=== PATIENT | male | born 1955 | race Caucasian/White ===

== ENCOUNTER 2024-07-31 10:20 | Inpatient (IN) | payer OTHER, MEDICARE ==
--- NOTE | 2024-07-31 10:42 | ED ---
Chest Pain HPI - General Chief Complaint: Chest Pain Stated Complaint: chest pain Time Seen by Provider: 07/31/24 10:34 Source: patient, RN notes reviewed Mode of arrival: ambulatory Limitations: no limitations - History of Present Illness Initial Comments: This is a 69-year-old male with a past medical history of hypertension, hyperlipidemia, tobacco abuse presenting to emergency department via EMS for complaints of substernal chest pain described as a stabbing sensation that started few hours prior to arrival. Patient dates that he was sitting in his couch watching television when the pain started. He endorses associated shortness of breath and feelings of nausea with mild diaphoresis at the time. He denies radiation of pain, history of DVT or PE, mopped assist, recent prolonged travel, recent surgeries, calf swelling or pain. Denies blood thinner use. Patient states that he was given aspirin and route via EMS - Related Data Allergies Allergy/AdvReac Type Severity Reaction Status Date / Time No Known Allergies Allergy Verified 07/31/24 10:31 Review of Systems ROS Statement: Those systems with pertinent positive or pertinent negative responses have been documented in the HPI. ROS Other: All systems not noted in ROS Statement are negative. Past Medical History Past Medical History: Hyperlipidemia, Hypertension History of Any Multi-Drug Resistant Organisms: None Reported Past Surgical History: No Surgical Hx Reported Past Psychological History: Anxiety Smoking Status: Current every day smoker Past Alcohol Use History: None Reported Past Drug Use History: None Reported General Exam Limitations: no limitations General appearance: alert, in no apparent distress Eye exam: Present: normal appearance, PERRL, EOMI. Absent: scleral icterus, conjunctival injection, periorbital swelling Neck exam: Present: normal inspection. Absent: tenderness, meningismus, lymphadenopathy Respiratory exam: Present: normal lung sounds bilaterally. Absent: respiratory distress, wheezes, rales, rhonchi, stridor Cardiovascular Exam: Present: regular rate, normal rhythm, normal heart sounds. Absent: systolic murmur, diastolic murmur, rubs, gallop, clicks GI/Abdominal exam: Present: soft, normal bowel sounds. Absent: distended, tend erness, guarding, rebound, rigid Extremities exam: Present: normal inspection, full ROM, normal capillary refill. Absent: tenderness, pedal edema, joint swelling, calf tenderness Back exam: Present: normal inspection Course Vital Signs 07/31/24 07/31/24 10:24 13:52 Temperature 98.4 F Pulse Rate 81 91 Respiratory 17 18 Rate Blood Pressure 183/94 164/97 O2 Sat by Pulse 99 97 Oximetry Chest Pain MDM - MDM Was pt. sent in by a medical professional or institution (KRYSTYNA Barker, RE[employer]UITING [employer]AD, urgent care, hospital, or detention...) When possible be specific @ -No Did you speak to anyone other than the patient for history (EMS, parent, family, police, friend...)? What history was obtained from this source @ -No Did you review nursing and triage notes (agree or disagree)? Why? @ -I reviewed and agree with nursing and triage notes Were old charts reviewed (outside hosp., previous admission, EMS record, old EKG, old radiological studies, urgent care reports/EKG's, detention records)? Report findings @ -No old charts were reviewed Differential Diagnosis (chest pain, altered mental status, abdominal pain women, abdominal pain men, vaginal bleeding, weakness, fever, dyspnea, syncope, headache, dizziness, GI bleed, back pain, seizure, CVA, palpatations, mental health, musculoskeletal)? @ -Differential Chest Pain: Stable Angina, Unstable Angina, STEMI, NSTEMI Aortic Dissection, Pneumothorax, Musculoskeletal, Esophageal Spasm GERD, Cholecystitis, Pancreatitis, Zoster, this is not meant to be an all-inclusive list. EKG interpreted by me (3pts min.). @ -Completed at 1030 sinus rhythm with a ventricular rate of 93, WV interval 162, QRS 115, QTc 430. X-rays interpreted by me (1pt min.). @ -Chest x-ray completed with no acute cardiopulmonary process or disease CT interpreted by me (1pt min.). @ -CT of the chest angiography for PE reveals no evidence of PE. scattered areas of mural thrombus of the thoracic aorta and origin of the subclavian artery U/S interpreted by me (1pt. min.). @ -None done What testing was considered but not performed or refused? (CT, X-rays, U/S, labs)? Why? @ -None What meds were considered but not given or refused? Why? @ -None Did you discuss the management of the patient with other professionals (professionals i.e. KRYSTYNA Barker, RECRUITING TE[employer] LEAD, lab, RT, psych nurse, social worker aide, cloud software engineer, teacher, fire information officer, rifle case repairer)? Give summary @ -Spoke with on-call [facility] [facility] physician, Dr. Espinoza, was agreed to meet the patient recommends vascular consult for CT scanning finding of scattered areas of mural thrombus of the thoracic aorta Was smoking cessation discussed for >3mins.? @ -No Was critical care preformed (if so, how long)? @ -No Were there social determinants of health that impacted care today? How? (Homelessness, low income, unemployed, alcoholism, drug addiction, transportation, low edu. Level, literacy, decrease access to med. care, [facility], rehab)? @ -No Was there de-escalation of care discussed even if they declined (Discuss DNR or withdrawal of care, Hospice)? DNR status @ -No What co-morbidities impacted this encounter? (DM, HTN, Smoking, COPD, CAD, Cancer, CVA, ARF, Chemo, Hep., AIDS, mental health diagnosis, sleep apnea, morbid obesity)? @ -Hypertension, smoking Was patient admitted / discharged? Hospital course, mention meds given and route, prescriptions, significant lab abnormalities, going to OR and other pertinent info. @ Admitted. 69-year-old male presenting to emergency department with complaints of chest pain via EMS. He is provided with aspirin en route. Blood pressure is mildly elevated of 183/94. Overall patient is well-appearing. He is provided with morphine for pain control and will undergo cardiac evaluation. Chest x-ray is unremarkable. Initial troponin not elevated. Patient does have a elevated D-dimer at 1.67 where CTA of the chest is ordered no evidence of PE however incidental finding of scattered areas mural thrombus of thoracic aorta with origin of the subclavian artery. Patient will be admitted to internal medicine with cardiology and vascular on consult and will continue to trend troponin. Patient will be admitted to Dr. Espinoza. case discussed with my ED attending, Dr. dunbar Patient has a heart score of 6 which is a moderate score concerning for risk of major adverse cardiac event within the next 6 weeks Undiagnosed new problem with uncertain prognosis? @ -No Drug Therapy requiring intensive monitoring for toxicity (Heparin, Nitro, Insulin, Cardizem)? @ -No Were any procedures done? @ -No Diagnosis/symptom? @ -Chest pain, mural thrombus of thoracic aorta Acute, or Chronic, or Acute on Chronic? @ -Acute Uncomplicated (without systemic symptoms) or Complicated (systemic symptoms)? @ -complicated Side effects of treatment? @ -No Exacerbation, Progression, or Severe Exacerbation? @ -No Poses a threat to life or bodily function? How? (Chest pain, [place], [place], pneumonia, PE, COPD, DKA, ARF, appy, cholecystitis, CVA, Diverticulitis, Homicidal, Suicid al, threat to staff... and all critical care pts) @ -No Disposition Clinical Impression: Chest pain Disposition: ADMITTED IP TO THIS [facility] Condition: Stable Referrals: Og Ortiz DO [Primary Care Provider] - 1-2 days Decision to Admit Reason: Admit from EC Decision Date: 07/31/24 Decision Time: 14:44
[2024-07-31] MEDS: MORPHINE SULFATE 4 MG/ML SYRINGE IVP STA ×2 (10:58→13:51)
--- NOTE | 2024-07-31 11:19 | XR ---
EXAMINATION TYPE: XR chest 2V DATE OF EXAM: 07/31/2024 11:05 AM COMPARISON: None. CLINICAL INDICATION: Male, 69 years old with history of Chest Pain, TECHNIQUE: XR chest 2V view(s) obtained. FINDINGS: The heart size is normal. The pulmonary vasculature is normal. The lungs are clear. IMPRESSION: 1. No acute pulmonary process. [facility], , 07/31/2024 11:17 AM
[2024-07-31 12:02] LABS: Basophils # (A) 0.05 10*3/uL (0.00-0.10); Basophils % (A) 0.6 %; Eosinophils # (A) 0.01 10*3/uL (0.04-0.35); Eosinophils % (A) 0.1 %; HCT 38.6 % (39.6-50.0); HGB 14.4 g/dL (13.0-17.0); Lymphocytes # (A) 1.34 10*3/uL (0.90-5.00); Lymphocytes % (A) 15.8 %; MCHC 37.3 g/dL (32.0-37.0); MCV 88.3 fL (80.0-97.0); Mean Platelet Volume 8.8 fL (9.5-12.2); Monocytes # (A) 0.76 10*3/uL (0.20-1.00); Neutrophils % (A) 74.4 %; Platelet Count 188 10*3/uL (140-440); RBC 4.37 10*6/uL (4.40-5.60); RDW 12.8 % (11.5-14.5); WBC 8.47 10*3/uL (4.50-10.00)
[2024-07-31 12:16] LABS: ALT 23 U/L (4-49); AST 31 U/L (17-59); African American GFR (CKD) >90 (>60 ml/min/1.73 sqM); Albumin 4.3 g/dL (3.5-5.0); Alkaline Phosphatase 90 U/L (38-126); Anion Gap 11 mmol/L; Blood Urea Nitrogen 15 mg/dL (9-20); Calcium 9.4 mg/dL (8.4-10.2); Carbon Dioxide 22 mmol/L (22-30); Chloride 100 mmol/L (98-107); Glucose 120 mg/dL (74-99); Lipase 164 U/L (23-300); Magnesium 1.6 mg/dL (1.6-2.3); Non-African American GFR(CKD) >90 (>60 ml/min/1.73 sqM); Potassium 4.2 mmol/L (3.5-5.1); Sodium 133 mmol/L (137-145); Total Bilirubin 0.9 mg/dL (0.2-1.3); Total Protein 7.1 g/dL (6.3-8.2)
[2024-07-31 12:21] LABS: NT-Pro-B-Type Natriuretic Pept 152 pg/mL
[2024-07-31 12:29] LABS: Prothrombin Time 10.8 sec (10.0-12.5)
[2024-07-31 12:42] LABS: Partial Thromboplastin Time 19.3 sec (22.0-30.0)
--- NOTE | 2024-07-31 14:06 | CT ---
EXAMINATION TYPE: CT chest angio for PE DATE OF EXAM: 07/31/2024 COMPARISON: None CLINICAL INDICATION: Male, 69 years old with history of chest pain, elevated dimer; PHH, Chest pain, elevated D-dimer, SOB or PAIN TECHNIQUE: Ct angiogram of the chest performed with without and with IV Contrast, patient injected with 100 ml m L of Isovue 370. MIP images are created and reviewed. CT DLP: 288.[address] CTDI: mGy Automated exposure control for dose reduction was used. FINDINGS: There are no filling defects within the pulmonary arterial circulation to suggest pulmonary embolism. There are scattered areas of filling defects within the ascending thoracic aorta, aortic arch and soni cending thoracic aorta. Filling defects are also seen within the origin of the left subclavian artery . There is no lung mass or nodule. There is no airspace consolidation. There is no pleural effusion or pneumothorax. Limited scanning through the upper abdomen reveals no gross abnormality. There are no focal osseous lesions. IMPRESSION: 1. No evidence of pulmonary embolism. 2. Scattered areas of mural thrombus within the thoracic aorta and origin of the left subclavian casimiro ry. Possibly poses a significant risk for down stream embolism. 3. No acute cardiopulmonary disease. [facility], , 07/31/2024 2:04 PM
[2024-07-31] MEDS ORDERED: NALOXONE 0.4 MG/ML 1 ML VIAL IV PRN (14:44)
[2024-07-31] MEDS ORDERED: NICOTINE GUM (POLACRILEX) 2 MG GUM BUCCAL PRN (15:44)
--- NOTE | 2024-07-31 15:48 | P.HPIM ---
History of Present Illness H&P Date: 07/31/24 Patient is 69-year-old male with past medical history of hypertension, does not follow with primary care physician, tobacco use disorder around [id number], who presented to the ER via EMS with chest pain described as sharp. The pain started when he was sitting in the chair, watching TV, noted associated SOB, diaphoresis, nausea. The pain lasted minutes, self resolved. During my eval uation, patient noted some remaining chest discomfort that gets worse with physical activity and improves with rest. No radiation. No fevers, chills, back pain, abdominal pain, changes in bowel habits, dysuria, lower extremity edema, upper extremity weakness, sensation changes. No dizziness, ligh theadedness. Positive family history of for heart attacks in his maternal grandfather. No alcohol use, no drug use. On admission afebrile, heart rate in the 80s, BP elevated 193/94, satting well on room air. Lab work significant for normal CBC, D-dimer elevated 1.67, sodium 133, normal potassium, chloride, bicarb, creatinine 0.57, blood glucose 128, magnesium 1.6, AST ALT normal, normal BNP and troponin negative. Chest x-ray showed no acute pulmonary process, personally reviewed. EKG with sinus rhythm with heart rate in 90s, no ST elevation, QTc 430 CTA chest showed no evidence of PE, filling defects, mual thrombus within the ascending thoracic aorta, aortic arch and descending thoracic aorta, filling defects within the origin of the left subclavian artery Pertinent positives and negatives as discussed in HPI, a complete review of systems was performed and all other systems are negative. Patient seen and examined at bedside. Vital signs reviewed General: nontoxic, no distress, appears at stated age Derm: warm, dry Head: atraumatic, normocephalic, symmetric Eyes: EOMI, no lid lag, anicteric sclera, pupils equal round reactive to light ENT: Nose and ears atraumatic Neck: No thyromegaly, supple Mouth: no lip lesion, mucus membranes moist Cardiovascular: S1S2 reg, no murmur, no edema Lungs: clear to auscultation bilateral, no rhonchi, no rales, no wheeze, no accessory muscle use Abdominal: soft, nontender to palpation, no guarding, no appreciable organomegaly, umbilical hernia Ext: no gross muscle atrophy, muscle strength muscle strength 5 out of 5 in all 4 extremities, no contractures Neuro: CN II-XII grossly intact Psych: Alert, oriented, appropriate affect Assessment/Plan: Chest pain mural thrombus within the ascending thoracic aorta, aortic arch and descending thoracic aorta, filling defects within the origin of the left subclavian artery Hypertension -Cardiology consulted, appreciate recommendations -Vascular surgery consulted, notified Dr. Enrique, awaiting further recommendations -TSH, lipid profile, A1c ordered, pending -Continue telemetry -Resume home meds once reconciled -Sublingual nitro 0.4 mg every 10 minutes as needed -Morphine 4 mg IV every 4 hours as needed Tobacco use disorder -Requested nicotine gum, states it gets skin reaction with patches The patient is admitted with an anticipated [less] than 2 midnight stay as [observation] status for evaluation of chest pain, CODE STATUS: Full code DVT prophylaxis: Lovenox Anticipated discharge date: TBD Anticipated discharge place: [facility] A total of 38minutes was spent on the care of this complex patient more than 50% of the time was spent in counseling and care coordination. Past Medical History Past Medical History: Hyperlipidemia, Hypertension History of Any Multi-Drug Resistant Organisms: None Reported Past Surgical History: No Surgical Hx Reported Past Psychological History: Anxiety Smoking Status: Current every day smoker Past Alcohol Use History: None Reported Past Drug Use History: None Reported Medications and Allergies Allergies Allergy/AdvReac Type Severity Reaction Status Date / Time No Known Allergies Allergy Verified 07/31/24 15:42 Physical Exam Vitals: Vital Signs Temp Pulse Resp BP Pulse Ox 07/31/24 13:52 91 18 164/97 97 07/31/24 10:24 98.4 F 81 17 183/94 99 Intake and Output 07/30/24 07/31/24 07/31/24 22:59 06:59 14:59 Other: Weight 79.379 kg Results CBC & Chem 7: 07/31/24 11:31 07/31/24 11:31 Labs: Abnormal Lab Results - Last 24 Hours (Table) 07/31/24 07/31/24 07/31/24 Range/Units 11:31 11:31 11:31 RBC 4.37 L (4.40-5.60) 10*6/uL Hct 38.6 L (39.6-50.0) % MCH 33.0 H (27.0-32.0) pg MCHC 37.3 H (32.0-37.0) g/dL MPV 8.8 L (9.5-12.2) fL Eosinophils # 0.01 L (0.04-0.35) 10*3/uL APTT 19.3 L (22.0-30.0) sec D-Dimer 1.67 H (<0.60) mg/L FEU Sodium 133 L (137-145) mmol/L Creatinine 0.57 L (0.66-1.25) mg/dL Glucose 120 H (74-99) mg/dL
[2024-08-01 02:54] LABS: Chol/HDL Ratio 2.72 Ratio; LDL Cholesterol,Calculated 103.7 mg/dL (0.0-131.0); VLDL Calculation 13.42 mg/dL (5.00-40.00)
[2024-08-01 08:13] LABS: Basophils # (A) 0.06 X 10*3/uL (0.00-0.10); Eosinophils # (A) 0.14 X 10*3/uL (0.04-0.35); Eosinophils % (A) 2.4 %; HCT 39.1 % (39.6-50.0); HGB 13.5 g/dL (13.0-17.0); Lymphocytes # (A) 2.02 X 10*3/uL (0.90-5.00); Lymphocytes % (A) 34.1 %; MCH 32.5 pg (27.0-32.0); MCHC 34.5 g/dL (32.0-37.0); MCV 94.2 FL (80.0-97.0); Mean Platelet Volume 9.2 FL (9.5-12.2); Monocytes # (A) 0.67 X 10*3/uL (0.20-1.00); Monocytes % (A) 11.3 %; NRBC Per 100 WBC 0 X 10*3/uL (0.00-0.01); Neutrophils # (A) 3.02 X 10*3/uL (1.80-7.70); Neutrophils % (A) 50.9 %; Platelet Count 152 X 10*3/uL (140-440); RBC 4.15 X 10*6/uL (4.40-5.60); RDW 13.6 % (11.5-14.5); WBC 5.93 X 10*3/uL (4.50-10.00)
[2024-08-01 08:23] LABS: ALT 22 U/L (10-49); AST 29 U/L (14-35); Albumin 3.9 g/dL (3.8-4.9); Alkaline Phosphatase 77 U/L (41-126); BUN/Creat Ratio 23.43 Ratio (12.00-20.00); Blood Urea Nitrogen 16.4 mg/dL (9.0-27.0); Carbon Dioxide 24.1 mmol/L (21.6-31.8); Chloride 101 mmol/L (96-109); Globulin 2.3 g/dL (1.6-3.3); Glucose 110 mg/dL (70-110); Potassium 3.9 mmol/L (3.5-5.5); Sodium 136 mmol/L (135-145); Total Bilirubin 0.7 mg/dL (0.3-1.2); Total Protein 6.2 g/dL (6.2-8.2)
[2024-08-01] MEDS ORDERED: amLODIPine 5 MG TAB PO SCH (09:00)
--- NOTE | 2024-08-01 09:02 | P.GSCN ---
History of Present Illness Consult date: 08/01/24 Reason for Consult: Thrombus within thoracic aorta Requesting physician: Philomena Mitchell History of present illness: This is a pleasant 69-year-old male who presented to the emergency department yesterday afternoon with complaints of chest pain in the center of his chest, with associated shortness of breath with exertion and apparently he had been diaphoretic. Chest pain started yesterday lasted several hours he came in for further evaluation. He had a mildly elevated D-dimer. Chest CT angiogram was ordered without any acute pulmonary emboli however mural thrombus was reported in the thoracic and ascending aorta. Vascular surgery was consulted secondary to thrombus. Patient has a history of hypertension however does not follow regularly with a primary care physician. He states he gets his medication from the [place] but has not followed up recently. 30-year history of smoking. He states that he still has the chest discomfort. He denies any history of blood clots, no known family history of blood clots or coronary artery disease. Patient has been afebrile heart rate 68 respiratory rates excuse me 16 blood pressures have been running in the 140s to 180 over 70s to 90s. Oxygen saturation 97% on room air. Patient denies any abdominal pain, nausea or vomiting. No recent fevers or chills. Denies any pain in his extremities, no weakness in his left upper extremity. Full range of motion. Dr. Espinoza reviewed case with Dr. Enrique yesterday. Dr. Enrique reviewed CT angiogram imaging and did not believe the patient needed any vascular surgical intervention or anticoagulation at this time as it is not embolic. Review of Systems A 14 point review systems was completed all pertinent positives and negatives as stated in the HPI. Past Medical History Past Medical History: Hyperlipidemia, Hypertension Additional Past Medical History / Comment(s): Degenerative disc disease, smoker History of Any Multi-Drug Resistant Organisms: None Reported Past Surgical History: No Surgical Hx Reported Past Psychological History: Anxiety Smoking Status: Current every day smoker Past Alcohol Use History: None Reported Past Drug Use History: None Reported - Past Family History Father History Unknown: Yes Mother History Unknown: Yes Medications and Allergies Home Medications Medication Instructions Recorded Confirmed Type amLODIPine [Norvasc] 5 mg PO DAILY 07/31/24 07/31/24 History lisinopriL 40 mg PO DAILY 07/31/24 07/31/24 History Allergies Allergy/AdvReac Type Severity Reaction Status Date / Time No Known Allergies Allergy Verified 07/31/24 15:42 Surgical - Exam Vital Signs Temp Pulse Resp BP Pulse Ox 98.4 F 81 17 183/94 99 07/31/24 10:24 07/31/24 10:24 07/31/24 10:24 07/31/24 10:24 07/31/24 10:24 General appearance: The patient is alert, oriented, appears in no acute distress. HET: Head is normocephalic and atraumatic. Pupils are equal and reactive. Neck: Supple. No audible carotid bruit. Heart: Regular. Lungs: Equal expansion, normal respiratory effort. Abdomen: Soft, nontender, nondistended. Extremities: Normal skin color and turgor. Palpable bilateral radial pulses. Palpable DP pulses. Neurological: No focal deficits. Strength and sensation are grossly intact. Results - Labs 08/01/24 05:04 08/01/24 05:04 Abnormal Lab Results - Last 24 Hours (Table) 07/31/24 07/31/24 07/31/24 Range/Units 11:31 11:31 11:31 RBC 4.37 L (4.40-5.60) 10*6/uL Hct 38.6 L (39.6-50.0) % MCH 33.0 H (27.0-32.0) pg MCHC 37.3 H (32.0-37.0) g/dL MPV 8.8 L (9.5-12.2) fL Eosinophils # 0.01 L (0.04-0.35) 10*3/uL APTT 19.3 L (22.0-30.0) sec D-Dimer 1.67 H (<0.60) mg/L FEU Sodium 133 L (137-145) mmol/L Creatinine 0.57 L (0.66-1.25) mg/dL Glucose 120 H (74-99) mg/dL HDL Cholesterol (40.00-60.00) mg/dL 07/31/24 Range/Units 16:03 RBC (4.40-5.60) 10*6/uL Hct (39.6-50.0) % MCH (27.0-32.0) pg MCHC (32.0-37.0) g/dL MPV (9.5-12.2) fL Eosinophils # (0.04-0.35) 10*3/uL APTT (22.0-30.0) sec D-Dimer (<0.60) mg/L FEU Sodium (137-145) mmol/L Creatinine (0.66-1.25) mg/dL Glucose (74-99) mg/dL HDL Cholesterol 67.90 H (40.00-60.00) mg/dL Diabetes panel 07/31/24 07/31/24 07/31/24 Range/Units : 16:03 16:03 Sodium 133 L (137-145) mmol/L Potassium 4.2 (3.5-5.1) mmol/L Chloride 100 (98-107) mmol/L Carbon Dioxide 22 (22-30) mmol/L BUN 15 (9-20) mg/dL Creatinine 0.57 L (0.66-1.25) mg/dL Glucose 120 H (74-99) mg/dL Hemoglobin A1c 5.4 (<=6.0) % Calcium 9.4 (8.4-10.2) mg/dL AST 31 (17-59) U/L ALT 23 (4-49) U/L Alkaline Phosphatase 90 (38-126) U/L Total Protein 7.1 (6.3-8.2) g/dL Albumin 4.3 (3.5-5.0) g/dL Triglycerides 67.10 (0.00-149.00) mg/dL HDL Cholesterol 67.90 H (40.00-60.00) mg/dL Thyroid panel 07/31/24 Range/Units 16:03 TSH 1.370 (0.465-4.680) mIU/L Calcium panel 07/31/24 Range/Units : Calcium 9.4 (8.4-10.2) mg/dL Albumin 4.3 (3.5-5.0) g/dL Pituitary panel 07/31/24 07/31/24 Range/Units 11: 16:03 Sodium 133 L (137-145) mmol/L Potassium 4.2 (3.5-5.1) mmol/L Chloride 100 (98-107) mmol/L Carbon Dioxide 22 (22-30) mmol/L BUN 15 (9-20) mg/dL Creatinine 0.57 L (0.66-1.25) mg/dL Glucose 120 H (74-99) mg/dL Calcium 9.4 (8.4-10.2) mg/dL TSH 1.370 (0.465-4.680) mIU/L Adrenal panel 07/31/24 Range/Units 11:31 Sodium 133 L (137-145) mmol/L Potassium 4.2 (3.5-5.1) mmol/L Chloride 100 (98-107) mmol/L Carbon Dioxide 22 (22-30) mmol/L BUN 15 (9-20) mg/dL Creatinine 0.57 L (0.66-1.25) mg/dL Glucose 120 H (74-99) mg/dL Calcium 9.4 (8.4-10.2) mg/dL Total Bilirubin 0.9 (0.2-1.3) mg/dL AST 31 (17-59) U/L ALT 23 (4-49) U/L Alkaline Phosphatase 90 (38-126) U/L Total Protein 7.1 (6.3-8.2) g/dL Albumin 4.3 (3.5-5.0) g/dL - Imaging Comments: Chest CT angiogram reports no evidence of pulmonary embolism. Scattered areas of mural thrombus within the thoracic aorta and origin of the left subclavian artery. Possibly poses a significant risk for downstream embolism. No acute cardiopulmonary disease. Assessment and Plan Assessment: 1. Chest pain 2. Scattered mural thrombus in thoracic and descending aorta with filling defects within the origin of the left subclavian artery per chest CTA 2. Hypertension 3. Daily smoker Plan: 1. Continue symptomatic and supportive care 2. No recommendation at this time for anticoagulation, patient currently on Lovenox for DVT prophylaxis 3. Obtain Carotid US 4. Discussed importance of smoking cessation with patient. Recommend smoking cessation. Patient currently using Nicorette gum. 5. Recommend establishing and regular follow-up visits with primary care physician to monitor blood pressure 6. Await recommendations from cardiology Thank you for this consultation, further recommendations forthcoming based on clinical course. The impression and plan of care has been dictated as directed. Dr. Palacio I performed a history and examination of this patient, discussed the same with the dictator. I agree with the dictator's note ,documented as a scribe. Any additional findings or plans will be noted.
[2024-08-01] MEDS: ASPIRIN 81 MG PO SCH (09:24)
[2024-08-01] MEDS: lisinopriL 20 MG TAB PO SCH (09:24)
[2024-08-01] MEDS: amLODIPine 10 MG TAB PO SCH (09:24)
[2024-08-01] MEDS: NITROGLYCERIN SL TABS 0.4 MG TAB SUBLINGUAL PRN (09:24)
[2024-08-01] MEDS: MORPHINE SULFATE 4 MG/ML SYRINGE IV PRN (09:25)
[2024-08-01] MEDS: ENOXAPARIN 40 MG/0.4 ML SYRINGE SQ SCH (09:25)
--- NOTE | 2024-08-01 11:29 | P.CRDCN ---
History of Present Illness History of present illness: HISTORY OF PRESENT ILLNESS: This is a 69-year-old male with a past medical history significant for hypertension and nicotine dependence. Patient does not follow with a production intern. We have been asked to see the patient in consultation for chest pain. Patient examined at the bedside. Patient presented to the hospital with a chief complaint of chest discomfort. Patient states the pain started yesterday. He was not doing anything exertionally related when it started. He states the pain was in the middle of his chest and it was sharp type sensation. He reports associated shortness of breath. He states the pain lasted for a few hours. He denies any chest pain or pressure this morning. The patient is a current smoker and reports smoking 1 pack/day. The patient's blood pressures were noted to be significantly elevated upon admission with a reading of 183/94. DIAGNOSTICS: - EKG reveals sinus mechanism with no signs of acute ischemia. - Chest xray negative for acute process - Chest CTA: Negative for pulmonary embolism. Scattered areas of mural thrombus within the thoracic aorta and origin of the left subclavian artery. Possibly pose a significant risk for downstream embolism. Negative for acute cardiopulmonary disease. - Laboratory data: WBC 5.93. Hemoglobin 13.5. Platelet count 152. D-dimer 1.67. Sodium 136. Potassium 3.9. BUN 16. Creatinine 0.7. Troponin negative x 3. TSH 1.370. - Current home cardiac medications include lisinopril 40 mg daily and amlodipine 5 mg daily - No previous echocardiogram, stress test, or cardiac catheterization available in EMR for review REVIEW OF SYSTEMS: At the time of my exam: CONSTITUTIONAL: Denies fever or chills. HEENT: Denies blurred vision, vision changes, or eye pain. Denies hemoptysis CARDIOVASCULAR: Denies chest pain. Denies orthopnea. Denies PND. Denies palpitations RESPIRATORY: Denies shortness of breath. GASTROINTESTINAL: Denies abdominal pain. Denies nausea or vomiting. HEMATOLOGIC: Denies bleeding disorders. GENITOURINARY: Denies any blood in urine. SKIN: Denies pruitis. Denies rash. PHYSICAL EXAM: VITAL SIGNS: Reviewed. GENERAL: Well-developed in no acute distress. HEENT: Head is normocephalic. Pupils are equal, round. Sclerae anicteric. Mucous membranes of the mouth are moist. Neck supple. No JVD or thyromegaly LUNGS: Respirations even and unlabored. Lungs essentially clear to auscultation bilaterally. HEART: Regular rate and rhythm. S1 and S2 heard. ABDOMEN: Soft. Nondistended. Nontender. EXTREMITIES: Normal range of motion. No clubbing or cyanosis. Peripheral pulses intact. No lower extremity edema NEUROLOGIC: Awake and alert. Oriented x 3. ASSESSMENT: Chest pain, troponin negative x 3 Hypertensive urgency Scattered mural thrombus in thoracic and descending aorta with filling defects within the origin of the left subclavian artery per chest CTA History of hypertension Nicotine dependence PLAN: Obtain 2D echo to assess cardiac structure and function Resume home cardiac medications Increase amlodipine to 10 mg daily for optimal blood pressure control Add aspirin and Lipitor Check hemoglobin A1c and lipid panel Vascular surgery has been consulted for evaluation. Await further input and recommendations Further recommendations pending patient course Nurse practitioner note has been reviewed by physician. Signing provider agrees with the documented findings, assessment, and plan of care documented by CYBER POLICY AND STRATEGY PLANNER as a scribe. Past Medical History Past Medical History: Hyperlipidemia, Hypertension Additional Past Medical History / Comment(s): Degenerative disc disease, smoker History of Any Multi-Drug Resistant Organisms: None Reported Past Surgical History: No Surgical Hx Reported Past Psychological History: Anxiety Smoking Status: Current every day smoker Past Alcohol Use History: None Reported Past Drug Use History: None Reported - Past Family History Father History Unknown: Yes Mother History Unknown: Yes Medications and Allergies Home Medications Medication Instructions Recorded Confirmed Type amLODIPine [Norvasc] 5 mg PO DAILY 07/31/24 07/31/24 History lisinopriL 40 mg PO DAILY 07/31/24 07/31/24 History Allergies Allergy/AdvReac Type Severity Reaction Status Date / Time No Known Allergies Allergy Verified 07/31/24 15:42 Physical Exam Vitals: Vital Signs Temp Pulse Pulse Resp BP BP Pulse Ox 08/01/24 07:00 98.5 F 69 16 174/80 97 08/01/24 00:58 98.1 F 74 17 151/89 95 08/01/24 00:10 98.5 F 68 17 146/85 97 08/01/24 00:01 98.5 F 68 17 146/85 97 07/31/24 21:56 68 18 138/75 97 07/31/24 17:00 81 19 150/93 97 07/31/24 15:28 90 19 162/95 96 07/31/24 13:52 91 18 164/97 97 07/31/24 10:24 98.4 F 81 17 183/94 99 Intake and Output 07/31/24 08/01/24 08/01/24 22:59 06:59 14:59 Other: Voiding Method Toilet # Voids 1 Weight 79.379 kg Results 08/01/24 05:04 08/01/24 05:04 Cardiac Enzymes 07/31/24 07/31/24 07/31/24 Range/Units 11:31 11:31 14:46 AST 31 (17-59) U/L Troponin I <0.012 <0.012 (0.000-0.034) ng/mL 07/31/24 08/01/24 Range/Units 17:28 05:04 AST 29 (17-59) U/L Troponin I <0.012 (0.000-0.034) ng/mL Coagulation 07/31/24 Range/Units 11:31 PT 10.8 (10.0-12.5) sec APTT 19.3 L (22.0-30.0) sec Lipids 07/31/24 Range/Units 16:03 Triglycerides 67.10 (0.00-149.00) mg/dL Cholesterol 185.00 (0.00-200.00) mg/dL HDL Cholesterol 67.90 H (40.00-60.00) mg/dL Cholesterol/HDL Ratio 2.72 Ratio CBC 07/31/24 08/01/24 Range/Units 11:31 05:04 WBC 8.47 5.93 (4.50-10.00) 10*3/uL RBC 4.37 L 4.15 L (4.40-5.60) 10*6/uL Hgb 14.4 13.5 (13.0-17.0) g/dL Hct 38.6 L 39.1 L (39.6-50.0) % Plt Count 188 152 (140-440) 10*3/uL Comprehensive Metabolic Panel 07/31/24 08/01/24 Range/Units 11:31 05:04 Sodium 133 L 136 (137-145) mmol/L Potassium 4.2 3.9 (3.5-5.1) mmol/L Chloride 100 101 (98-107) mmol/L Carbon Dioxide 22 24.1 (22-30) mmol/L BUN 15 16.4 (9-20) mg/dL Creatinine 0.57 L 0.7 (0.66-1.25) mg/dL Glucose 120 H 110 (74-99) mg/dL Calcium 9.4 9.0 (8.4-10.2) mg/dL AST 31 29 (17-59) U/L ALT 23 22 (4-49) U/L Alkaline Phosphatase 90 77 (38-126) U/L Total Protein 7.1 6.2 (6.3-8.2) g/dL Albumin 4.3 3.9 (3.5-5.0) g/dL Current Medications Generic Name Dose Route Start Last Admin Trade Name Freq PRN Reason Stop Dose Admin Enoxaparin Sodium 40 mg 08/01/24 09:00 Enoxaparin 40 Mg/0.4 Ml Syringe SQ DAILY PATEL Morphine Sulfate 4 mg 07/31/24 14:44 Morphine Sulfate 4 Mg/Ml Syringe IV Q4HR PRN Severe Pain (Scale 7 to 10) Naloxone HCl 0.2 mg 07/31/24 14:44 Naloxone 0.4 Mg/Ml 1 Ml Vial IV Q2M PRN Opioid Reversal Nicotine Polacrilex 4 mg 07/31/24 15:44 Nicotine Gum (Polacrilex) 2 Mg Gum BUCCAL Q2HR PRN Nicotine Cravings Nitroglycerin 0.4 mg 07/31/24 15:47 Nitroglycerin Sl Tabs 0.4 Mg Tab SUBLINGUAL Q10M PRN Chest Pain Intake and Output 07/31/24 08/01/24 08/01/24 22:59 06:59 14:59 Other: Voiding Method Toilet # Voids 1 Weight 79.379 kg 08/01/24 05:04 08/01/24 05:04
--- NOTE | 2024-08-01 13:32 | P.PN ---
Subjective Progress Note Date: 08/01/24 Hospital Course: Patient is 69-year-old male with past medical history of hypertension, does not follow with primary care physician, tobacco use disorder around [id number], who presented to the ER via EMS with chest pain described as sharp. The pain started when he was sitting in the chair, watching TV, noted associated SOB, diaphoresis, nausea. The pain lasted minutes, self resolved. During my evaluation, patient noted some remaining chest discomfort that gets worse with physical activity and improves with rest. No radiation. No fevers, chills, back pain, abdominal pain, changes in bowel habits, dysuria, lower extremity edema, upper extremity weakness, sensation changes. No dizziness, lightheadedness. Positive family history of for heart attacks in his maternal grandfather. No alcohol use, no drug use. On admission afebrile, heart rate in the 80s, BP elevated 193/94, satting well on room air. Lab work significant for normal CBC, D-dimer elevated 1.67, sodium 133, normal potassium, chloride, bicarb, creatinine 0.57, blood glucose 128, magnesium 1.6, AST ALT normal, normal BNP and troponin negative. Chest x-ray showed no acute pulmonary process, personally reviewed. EKG with sinus rhythm with heart rate in 90s, no ST elevation, QTc 430 CTA chest showed no evidence of PE, filling defects, mual thrombus within the ascending thoracic aorta, aortic arch and descending thoracic aorta, filling defects within the origin of the left subclavian artery . Surgery consulted, recommends conservative management. Cardiology consulted, recommended TTE, ordered and pending, amlodipine increased to 10 mg daily, started on aspirin and Lipitor Subjective: Seen and examined at bedside, complains of persistent midline chest discomfort Pertinent positives and negatives as discussed above, a complete review of systems was performed and all other systems are negative. Vitals Signs Reviewed. General: nontoxic, no distress, appears at stated age Derm: warm, dry Head: atraumatic, normocephalic, symmetric Eyes: EOMI, no lid lag, anicteric sclera, pupils equal round reactive to light ENT: Nose and ears atraumatic Neck: No thyromegaly, supple Mouth: no lip lesion, mucus membranes moist Cardiovascular: S1S2 reg, no murmur, no edema Lungs: clear to auscultation bilateral, no rhonchi, no rales, no wheeze, no accessory muscle use Abdominal: soft, nontender to palpation, no guarding, no appreciable organomegaly, umbilical hernia Ext: no gross muscle atrophy, muscle strength muscle strength 5 out of 5 in all 4 extremities, no contractures Neuro: CN II-XII grossly intact Psych: Alert, oriented, appropriate affect Data Reviewed Today: Pertinent Labs: #1 WBC, hemoglobin, platelet count, unremarkable chemistry profile, A1c 5.4, TSH 1.3, LDL 103 Assessment and Plan:Chest pain mural thrombus within the ascending thoracic aorta, aortic arch and descending thoracic aorta, filling defects within the origin of the left subclavian artery Hypertension -Cardiology consulted, appreciate recommendations -Ordered and pending -Vascular surgery consulted, conservative management recommended -Continue telemetry -Continue home medications with lisinopril 40 mg daily, amlodipine was increased to 10 mg daily -Sublingual nitro 0.4 mg every 10 minutes as needed -Morphine 4 mg IV every 4 hours as needed -Aspirin 81 mg daily, Lipitor 40 mg daily Tobacco use disorder -Requested nicotine gum, states it gets skin reaction with patches CODE STATUS: Full code DVT prophylaxis: Lovenox Anticipated discharge date: 08/[address]: home Objective - Vital Signs Vital signs: Vital Signs Temp 98.5 F 08/01/24 07:00 Pulse 69 08/01/24 08:00 Resp 16 08/01/24 07:00 BP 174/80 08/01/24 07:00 Pulse Ox 97 08/01/24 07:00 FiO2 Intake & Output 07/31/24 08/01/24 08/01/24 18:59 06:59 18:59 Weight 79.379 kg 79.379 kg Other: Voiding Method Toilet # Voids 1 - Labs CBC & Chem 7: 08/01/24 05:04 08/01/24 05:04 Labs: Abnormal Lab Results - Last 24 Hours (Table) 07/31/24 08/01/24 08/01/24 Range/Units 16:03 05:04 05:04 RBC 4.15 L (4.40-5.60) X 10*6/uL Hct 39.1 L (39.6-50.0) % MCH 32.5 H (27.0-32.0) pg MPV 9.2 L (9.5-12.2) FL BUN/Creatinine Ratio 23.43 H (12.00-20.00) Ratio HDL Cholesterol 67.90 H (40.00-60.00) mg/dL
--- NOTE | 2024-08-01 14:18 | US ---
EXAMINATION TYPE: US carotid duplex BILAT DATE OF EXAM: 08/01/2024 Exam done portable COMPARISON: NONE CLINICAL INDICATION: Male, 69 years old with history of aortic thrombus; TECHNIQUE: Grayscale, color Doppler and spectral Doppler evaluation of the bilateral carotid systems and vertebral arteries. Indirect Doppler criteria was utilized. FINDINGS: EXAM MEASUREMENTS: RIGHT: Peak Systolic Velocity (PSV) cm/sec ----- Right CCA: 59.7 ----- Right ICA: 107.0 ----- Right ECA: 99.2 ICA/CCA ratio: 1.8 RIGHT: End Diastole cm/sec ----- Right CCA: 17.1 ----- Right ICA: 30.2 ----- Right ECA: 0.0 LEFT: Peak Systolic Velocity (PSV) cm/sec ----- Left CCA: 89.4 ----- Left ICA: 88.3 ----- Left ECA: 87.2 ICA/CCA ratio: 1.0 LEFT: End Diastole cm/sec ----- Left CCA: 17.6 ----- Left ICA: 28.5 ----- Left ECA: 7.4 VERTEBRALS (direction of flow): Right Vertebral: Antegrade Left Vertebral: Antegrade Rhythm: Arrhythmia Atheromatous plaquing of the bilateral carotid bifurcations. IMPRESSION: Atheromatous plaque in bilateral carotid bifurcations without significant flow-limiting stenosis base d on velocities. Criteria for Assigning % of Stenosis / Diameter reduction (Estimation based on the indirect measurements of the internal carotid artery velocities (ICA PSV). 1. Normal (no stenosis)=ICA PSV < 180 cm/s: ratio < 2.0: ICA EDV<40 cm/s. 2. Less than 50% stenosis=ICA PSV < 180 cm/s: ratio < 2.0: ICA EDV<40 cm/s. 3. 50 to 69% stenosis=ICA PSV of 180 to 230 cm/s: ration 2.0 ? 4.0: ICA EDV 40-100 cm/s. PSV 125-180 cm/sec and ICA/CCA PSV Ratio ? 2.0 is also consistent with 50-69% stenosis 4. Greater than 70% stenosis to near occlusion= ICA PSV > 230 cm/s: ratio > 4.0: ICA EDV > 100 cm/s. 5. Near occlusion= ICA PSV velocities may be low or undetectable: variable ratio and ICA EDV. 6. Total occlusion=unable to detect flow. [facility], , 08/01/2024 2:16 PM
[2024-08-01] MEDS: ATORVASTATIN 40 MG TAB PO SCH (20:00)
--- NOTE | 2024-08-02 13:55 | P.PN ---
Subjective Progress Note Date: 08/02/24 This is a 69-year-old male with a past medical history significant for hypertension and nicotine dependence. Patient does not follow with a paper sales manager. We have been asked to see the patient in consultation for chest pain. Patient examined at the bedside. Patient presented to the hospital with a chief complaint of chest discomfort. Patient states the pain started yesterday. He was not doing anything exertionally related when it started. He states the pain was in the middle of his chest and it was sharp type sensation. He reports associated shortness of breath. He states the pain lasted for a few hours. He denies any chest pain or pressure this morning. The patient is a current smoker and reports smoking 1 pack/day. The patient's blood pressures were noted to be significantly elevated upon admission with a reading of 183/94. DIAGNOSTICS: - EKG reveals sinus mechanism with no signs of acute ischemia. - Chest xray negative for acute process - Chest CTA: Negative for pulmonary embolism. Scattered areas of mural thrombus within the thoracic aorta and origin of the left subclavian artery. Possibly pose a significant risk for downstream embolism. Negative for acute cardiopulmonary disease. - Laboratory data: WBC 5.93. Hemoglobin 13.5. Platelet count 152. D-dimer 1.67. Sodium 136. Potassium 3.9. BUN 16. Creatinine 0.7. Troponin negative x 3. TSH 1.370. - Current home cardiac medications include lisinopril 40 mg daily and amlodipine 5 mg daily - No previous echocardiogram, stress test, or cardiac catheterization available in EMR for review 08/02/2024 Patient was seen and examined sitting up in bed. Continues to complain of chest discomfort, pain has been persistent and constant. Blood pressure is better but remains inadequately controlled. Was seen by vascular surgery with no plans for surgical intervention. PHYSICAL EXAM: VITAL SIGNS: Reviewed. GENERAL: Well-developed in no acute distress. HEENT: Head is normocephalic. Pupils are equal, round. Sclerae anicteric. Mucous membranes of the mouth are moist. Neck supple. No JVD or thyromegaly LUNGS: Respirations even and unlabored. Lungs essentially clear to auscultation bilaterally. HEART: Regular rate and rhythm. S1 and S2 heard. ABDOMEN: Soft. Nondistended. Nontender. EXTREMITIES: Normal range of motion. No clubbing or cyanosis. Peripheral pulses intact. No lower extremity edema NEUROLOGIC: Awake and alert. Oriented x 3. ASSESSMENT: Chest pain, troponin negative x 3 Hypertensive urgency Scattered mural thrombus in thoracic and descending aorta with filling defects within the origin of the left subclavian artery per chest CTA History of hypertension Nicotine dependence PLAN: Obtain 2D echo to assess cardiac structure and function We will add hydrochlorothiazide 25 mg p.o. daily. Plan for stress echocardiogram to be done on Sunday. Further recommendations pending patient course RESEARCH ADMINISTRATOR note has been reviewed, I agree with a documented findings and plan of care. Patient was seen and examined. Objective - Vital Signs Vital signs: Vital Signs Temp 97.8 F 08/02/24 07:05 Pulse 20 L 08/02/24 13:44 Resp 16 08/02/24 13:44 BP 149/74 08/02/24 07:05 Pulse Ox 97 08/02/24 07:05 FiO2 Intake & Output 08/01/24 08/02/24 08/02/24 18:59 06:59 18:59 Intake Total 100 Balance 100 Intake: Oral 100 Other: Voiding Method Toilet Toilet # Voids 2 1 3 - Labs CBC & Chem 7: 08/01/24 05:04 08/01/24 05:04
[2024-08-02] MEDS: hydroCHLOROthiazide 25 MG TAB PO SCH (14:43)
--- NOTE | 2024-08-02 15:49 | CA ---
Transthoracic Echo Report Name: Micky Sherwood Age: 69 Gender: M : 1955 Exam Date: 08/02/2024 14:11 Exam Location: [facility] Ht (in): 67 Wt (lb): 175 Ordering Physician: Gloria Espinoza MD Attending/Referring Phys: Manhole Stripper Fatuma Mercer RDCS Procedure CPT: Indications: Chest Pain Cardiac Hx: Technical Quality: Technically difficult study Contrast 1: Definity Total Dose (mL): 2 Contrast 2: Total Dose (mL): MEASUREMENTS (Male / Female) Normal Values 2D ECHO LV Diastolic Volume MOD BP 104.1 cm??? 67 - 155 / 56 - 104 cm??? LV Systolic Volume MOD BP 42.9 cm??? 22 - 58 / 19 - 49 cm??? LV Ejection Fraction MOD BP 58.8 % >= 55 % LV Cardiac Index MOD BP 2036.4 cm???/min???m??? LV Diastolic Volume MOD 4C 91.6 cm??? LV Systolic Volume MOD 4C 41.4 cm??? LV Ejection Fraction MOD 4C 54.8 % LV Cardiac Index MOD 4C 1668.8 cm???/min???m??? LV Diastolic Length 4C 8.8 cm LV Systolic Length 4C 7.1 cm LV Diastolic Volume MOD 2C 105.5 cm??? LV Systolic Volume MOD 2C 44.0 cm??? LV Ejection Fraction MOD 2C 58.3 % LV Cardiac Index MOD 2C 2047.6 cm???/min???m??? LV Diastolic Length 2C 7.8 cm LV Systolic Length 2C 7.0 cm LA Volume 32.6 cm??? 18 - 58 / 22 - 52 cm??? LA Volume Index 16.7 cm???/m??? 16 - 28 cm???/m??? DOPPLER AI Peak Velocity 444.5 cm/s AI Peak Gradient 79.0 mmHg AI Pressure Half Time 560.6 ms LVOT Peak Velocity 98.4 cm/s LVOT Peak Gradient 3.9 mmHg LVOT Velocity Time Integral 20.9 cm MV Area PHT 2.8 cm??? Mitral E Point Velocity 61.5 cm/s Mitral A Point Velocity 92.4 cm/s Mitral E to A Ratio 0.7 MV Deceleration Time 271.3 ms MV E' Velocity 4.8 cm/s Mitral E to MV E' Ratio 12.7 FINDINGS Left Ventricle Mildly increased left ventricular wall thickness. Left ventricular cavity size normal. No obvious regional wall motion abnormalities. Left ventricular ejection fraction is estimated at 55 to 60%. Right Ventricle Normal right ventricular size and function. Right Atrium Normal right atrial size. Left Atrium Normal left atrial size. Mitral Valve Structurally normal mitral valve. mild mitral regurgitation. Aortic Valve Trileaflet aortic valve. Mild aortic regurgitation. Tricuspid Valve Structurally normal tricuspid valve. Mild tricuspid regurgitation. Pulmonic Valve Pulmonic valve not well visualized. Pericardium No pericardial effusion. Aorta Aortic root and proximal ascending aorta not well visualized. CONCLUSIONS 1. Normal left ventricular size and systolic function 2. Mild mitral, aortic and tricuspid regurgitation 3. No pericardial effusion Previewed by: Dr. Sammy Bean MD (Electronically Signed) Final Date: 02 August 2024 15:49
--- NOTE | 2024-08-02 16:11 | P.PN ---
Subjective Progress Note Date: 08/02/24 Patient is 69-year-old male with past medical history of hypertension, does not follow with primary care physician, tobacco use disorder around [id number], who presented to the ER via EMS with chest pain described as sharp. The pain started when he was sitting in the chair, watching TV, noted associated SOB, diaphoresis, nausea. The pain lasted minutes, self resolved. During my evaluation, patient noted some remaining chest discomfort that gets worse with physical activity and improves with rest. No radiation. No fevers, chills, back pain, abdominal pain, changes in bowel habits, dysuria, lower extremity edema, upper extremity weakness, sensation changes. No dizziness, lightheade dness. Positive family history of for heart attacks in his maternal grandfather. No alcohol use, no drug use. On admission afebrile, heart rate in the 80s, BP elevated 193/94, satting well on room air. Lab work significant for normal CBC, D-dimer elevated 1.67, sodium 133, normal potassium, chloride, bicarb, creatinine 0.57, blood glucose 128, magnesium 1.6, AST ALT normal, normal BNP and troponin negative. Chest x-ray showed no acute pulmonary process, personally reviewed. EKG with sinus rhythm with heart rate in 90s, no ST elevation, QTc 430 CTA chest showed no evidence of PE, filling defects, mual thrombus within the ascending thoracic aorta, aortic arch and descending thoracic aorta, filling defects within the origin of the left subclavian artery . Surgery consulted, recommends conservative management. Cardiology consulted, recommended TTE, ordered and pending, amlodipine increased to 10 mg daily, started on aspirin and Lipitor Hydrochlorothiazide 25 mg p.o. daily added. TTE ordered and pending, plan for stress echo on Sunday A1c 5.5, patient will need to follow-up with PCP Subjective: Seen and examined at bedside, complains of persistent midline chest discomfort Pertinent positives and negatives as discussed above, a complete review of systems was performed and all other systems are negative. Vitals Signs Reviewed. General: nontoxic, no distress, appears at stated age Derm: warm, dry Head: atraumatic, normocephalic, symmetric Eyes: EOMI, no lid lag, anicteric sclera, pupils equal round reactive to light ENT: Nose and ears atraumatic Neck: No thyromegaly, supple Mouth: no lip lesion, mucus membranes moist Cardiovascular: S1S2 reg, no murmur, no edema Lungs: clear to auscultation bilateral, no rhonchi, no rales, no wheeze, no accessory muscle use Abdominal: soft, nontender to palpation, no guarding, no appreciable organomegaly, umbilical hernia Ext: no gross muscle atrophy, muscle strength muscle strength 5 out of 5 in all 4 extremities, no contractures Neuro: CN II-XII grossly intact Psych: Alert, oriented, appropriate affect Data Reviewed Today: Pertinent Labs: A1c 5.5 Assessment and Plan: Chest pain 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 daily added -TTE ordered and pending, plan for stress echo on Sunday -Sublingual nitro 0.4 mg every 10 minutes as needed -Morphine 4 mg IV every 4 hours as needed -Aspirin 81 mg daily, Lipitor 40 mg daily Tobacco use disorder -Requested nicotine gum, states it gets skin reaction with patches Prediabetes -A1c 5.5, follow-up with primary care physician CODE STATUS: Full code DVT prophylaxis: Lovenox Anticipated discharge date: Anticipated discharge place: home Objective - Vital Signs Vital signs: Vital Signs Temp 98.2 F 08/02/24 13:40 Pulse 20 L 08/02/24 13:44 Resp 16 08/02/24 13:44 BP 129/79 08/02/24 13:40 Pulse Ox 97 08/02/24 13:40 FiO2 Intake & Output 08/01/24 08/02/24 08/02/24 18:59 06:59 18:59 Intake Total 100 Balance 100 Intake: Oral 100 Other: Voiding Method Toilet Toilet # Voids 2 1 2 # Bowel Movements 0 - Labs CBC & Chem 7: 08/01/24 05:04 08/01/24 05:04
[2024-08-02] MEDS: NICOTINE 21MG/24HR PATCH TRANSDERM SCH (16:52)
[2024-08-03 07:02] LABS: African American GFR (CKD) >90 (>60 ml/min/1.73 sqM); Anion Gap 5 mmol/L; Blood Urea Nitrogen 20 mg/dL (9-20); Calcium 9.1 mg/dL (8.4-10.2); Carbon Dioxide 29 mmol/L (22-30); Chloride 99 mmol/L (98-107); Glucose 94 mg/dL (74-99); Non-African American GFR(CKD) >90 (>60 ml/min/1.73 sqM); Potassium 4.1 mmol/L (3.5-5.1); Sodium 133 mmol/L (137-145)
--- NOTE | 2024-08-03 09:57 | P.PN ---
Subjective Progress Note Date: 08/03/24 Patient is 69-year-old male with past medical history of hypertension, does not follow with primary care physician, tobacco use disorder around [id number], who presented to the ER via EMS with chest pain described as sharp. The pain started when he was sitting in the chair, watching TV, noted associated SOB, diaphoresis, nausea. The pain lasted minutes, self resolved. During my evaluation, patient noted some remaining chest discomfort that gets worse with physical activity and improves with rest. No radiation. No fevers, chills, back pain, abdominal pain, changes in bowel habits, dysuria, lower extremity edema, upper extremity weakness, sensation changes. No dizziness, lightheade dness. Positive family history of for heart attacks in his maternal grandfather. No alcohol use, no drug use. On admission afebrile, heart rate in the 80s, BP elevated 193/94, satting well on room air. Lab work significant for normal CBC, D-dimer elevated 1.67, sodium 133, normal potassium, chloride, bicarb, creatinine 0.57, blood glucose 128, magnesium 1.6, AST ALT normal, normal BNP and troponin negative. Chest x-ray showed no acute pulmonary process, personally reviewed. EKG with sinus rhythm with heart rate in 90s, no ST elevation, QTc 430 CTA chest showed no evidence of PE, filling defects, mual thrombus within the ascending thoracic aorta, aortic arch and descending thoracic aorta, filling defects within the origin of the left subclavian artery . Surgery consulted, recommends conservative management. Cardiology consulted, recommended TTE, ordered and pending, amlodipine increased to 10 mg daily, started on aspirin and Lipitor Hydrochlorothiazide 25 mg p.o. daily added. TTE ordered showed normal EF, no regional wall motion abnormality, plan for stress echo on Sunday A1c 5.5, patient will need to follow-up with PCP Subjective: Seen and examined at bedside, complains of persistent midline chest pain 8 out of 10, although does not appear in any acute distress Pertinent positives and negatives as discussed above, a complete review of systems was performed and all other systems are negative. Vitals Signs Reviewed. General: nontoxic, no distress, appears at stated age Derm: warm, dry Head: atraumatic, normocephalic, symmetric Eyes: EOMI, no lid lag, anicteric sclera, pupils equal round reactive to light ENT: Nose and ears atraumatic Neck: No thyromegaly, supple Mouth: no lip lesion, mucus membranes moist Cardiovascular: S1S2 reg, no murmur, no edema Lungs: clear to auscultation bilateral, no rhonchi, no rales, no wheeze, no accessory muscle use Abdominal: soft, nontender to palpation, no guarding, no appreciable organomegaly, umbilical hernia Ext: no gross muscle atrophy, muscle strength muscle strength 5 out of 5 in all 4 extremities, no contractures Neuro: CN II-XII grossly intact Psych: Alert, oriented, appropriate affect Data Reviewed Today: Pertinent Labs: Sodium 123, normal potassium, chloride, creatinine 0.62, normal bicarb, glucose 94 Assessment and Plan: Chest pain 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 daily added -TTE with normal EF, no regional wall motion abnormality, plan for stress echo on Sunday -Sublingual nitro 0.4 mg every 10 minutes as needed -Morphine 4 mg IV every 4 hours as needed -Aspirin 81 mg daily, Lipitor 40 mg daily Tobacco use disorder -Requested nicotine gum, patch ordered as well Prediabetes -A1c 5.5, follow-up with primary care physician CODE STATUS: Full code DVT prophylaxis: Lovenox Anticipated discharge date: Anticipated discharge place: home Objective - Vital Signs Vital signs: Vital Signs Temp 98.1 F 08/03/24 07:00 Pulse 56 L 08/03/24 07:00 Resp 16 08/03/24 07:00 BP 125/74 08/03/24 07:00 Pulse Ox 96 08/03/24 07:00 FiO2 Intake & Output 08/02/24 08/03/24 08/03/24 18:59 06:59 18:59 Intake Total 640 240 Balance 640 240 Intake: Oral 640 240 Other: Voiding Method Toilet Toilet Toilet # Voids 2 2 # Bowel Movements 0 - Labs CBC & Chem 7: 08/01/24 05:04 08/03/24 06:20 Labs: Abnormal Lab Results - Last 24 Hours (Table) 08/03/24 Range/Units 06:20 Sodium 133 L (137-145) mmol/L Creatinine 0.62 L (0.66-1.25) mg/dL
--- NOTE | 2024-08-03 12:21 | P.PN ---
Subjective Progress Note Date: 08/03/24 This is a 69-year-old male with a past medical history significant for hypertension and nicotine dependence. 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 We have been asked to see the patient in consultation for chest pain. Patient examined at the bedside. Patient presented to the hospital with a chief complaint of chest discomfort. Patient states the pain started yesterday. He was not doing anything exertionally related when it started. He states the pain was in the middle of his chest and it was sharp type sensation. He reports associated shortness of breath. He states the pain lasted for a few hours. He denies any chest pain or pressure this morning. The patient is a current smoker and reports smoking 1 pack/day. The patient's blood pressures were noted to be significantly elevated upon admission with a reading of 183/94. DIAGNOSTICS: - EKG reveals sinus mechanism with no signs of acute ischemia. - Chest xray negative for acute process - Chest CTA: Negative for pulmonary embolism. Scattered areas of mural thrombus within the thoracic aorta and origin of the left subclavian artery. Possibly pose a significant risk for downstream embolism. Negative for acute cardiopulmonary disease. - Laboratory data: WBC 5.93. Hemoglobin 13.5. Platelet count 152. D-dimer 1.67. Sodium 136. Potassium 3.9. BUN 16. Creatinine 0.7. Troponin negative x 3. TSH 1.370. - Current home cardiac medications include lisinopril 40 mg daily and amlodipine 5 mg daily - No previous echocardiogram, stress test, or cardiac catheterization available in EMR for review 08/02/2024 Patient was seen and examined sitting up in bed. Continues to complain of chest discomfort, pain has been persistent and constant. Blood pressure is better but remains inadequately controlled. Was seen by vascular surgery with no plans for surgical intervention. 08/03/2024 Patient was seen and examined resting comfortably in bed. He is overall feeling better. Has no current complaints of chest discomfort. Breathing is stable. Echocardiogram with Doppler study showed normal LV systolic function with mild MR, mild AI and mild TR. PHYSICAL EXAM: VITAL SIGNS: Reviewed. GENERAL: Well-developed in no acute distress. HEENT: Head is normocephalic. Pupils are equal, round. Sclerae anicteric. Mucous membranes of the mouth are moist. Neck supple. No JVD or thyromegaly LUNGS: Respirations even and unlabored. Lungs essentially clear to auscultation bilaterally. HEART: Regular rate and rhythm. S1 and S2 heard. ABDOMEN: Soft. Nondistended. Nontender. EXTREMITIES: Normal range of motion. No clubbing or cyanosis. Peripheral pulses intact. No lower extremity edema NEUROLOGIC: Awake and alert. Oriented x 3. ASSESSMENT: Chest pain, troponin negative x 3 Hypertensive urgency Scattered mural thrombus in thoracic and descending aorta with filling defects within the origin of the left subclavian artery per chest CTA History of hypertension Nicotine dependence PLAN: Plan for stress echocardiogram to be done on Sunday. Further recommendations pending patient course [facility] [employer] [facility] note has been reviewed, I agree with a documented findings and plan of care. Patient was seen and examined. Objective - Vital Signs Vital signs: Vital Signs Temp 98.1 F 08/03/24 07:00 Pulse 56 L 08/03/24 07:00 Resp 16 08/03/24 07:00 BP 125/74 08/03/24 07:00 Pulse Ox 96 08/03/24 07:00 FiO2 Intake & Output 08/02/24 08/03/24 08/03/24 18:59 06:59 18:59 Intake Total 640 240 Balance 640 240 Intake: Oral 640 240 Other: Voiding Method Toilet Toilet Toilet # Voids 2 2 # Bowel Movements 0 - Labs CBC & Chem 7: 08/01/24 05:04 08/03/24 06:20 Labs: Abnormal Lab Results - Last 24 Hours (Table) 08/03/24 Range/Units 06:20 Sodium 133 L (137-145) mmol/L Creatinine 0.62 L (0.66-1.25) mg/dL
[2024-08-04 07:49] VITALS: BP 110/68; PULSE 70; RESP 15; TEMP 97.8
[2024-08-04] MEDS ORDERED: DOBUTamine DRIP for NUC MED 500 MG/250 ML BAG IV ONE (08:00)
[2024-08-04 11:25] LABS: BUN/Creat Ratio 27.44 Ratio (12.00-20.00); Blood Urea Nitrogen 24.7 mg/dL (9.0-27.0); Chloride 99 mmol/L (96-109); Glucose 108 mg/dL (70-110); Sodium 136 mmol/L (135-145)
[2024-08-04] MEDS ORDERED: DOBUTamine DRIP for NUC MED 500 MG in DEXTROSE/WATER 1 250ML.BAG IV PRN (11:25)
[2024-08-04 11:26] LABS: Calcium 8.9 mg/dL (8.7-10.3); Carbon Dioxide 24.8 mmol/L (21.6-31.8)
--- NOTE | 2024-08-04 11:52 | P.PN ---
Subjective Progress Note Date: 08/04/24 Patient seen and examined today as a follow-up. He had a carotid duplex done that showed no flow-limiting stenosis bilaterally. He is scheduled to undergo stress test today with cardiology. Currently denies any shortness of breath or chest pain. Objective - Vital Signs Vital signs: Vital Signs Temp 97.8 F 08/04/24 07:00 Pulse 70 08/04/24 07:00 Resp 15 08/04/24 07:00 BP 110/68 08/04/24 07:00 Pulse Ox 96 08/04/24 07:00 FiO2 Intake & Output 08/03/24 08/04/24 08/04/24 18:59 06:59 18:59 Intake Total 462 222 Balance 462 222 Intake: Oral 462 222 Other: Voiding Method Toilet Toilet Toilet # Voids 3 3 # Bowel Movements 0 1 - Exam General appearance: The patient is alert, oriented, appears in no acute distress. HET: Head is normocephalic and atraumatic. Pupils are equal and reactive. Neck: Supple. Heart: Regular. Lungs: Equal expansion, normal respiratory effort. Abdomen: Soft, nontender, nondistended. Extremities: Normal skin color and turgor. Neurological: No focal deficits. Alert and oriented. - Labs CBC & Chem 7: 08/01/24 05:04 08/04/24 05:40 Assessment and Plan Assessment: 1. Chest pain 2. Scattered mural thrombus in thoracic and descending aorta with filling defects within the origin of the left subclavian artery per chest CTA 2. Hypertension 3. Daily smoker Plan: 1. Continue symptomatic and supportive care 2. No recommendation at this time for anticoagulation, patient currently on Lo venox for DVT prophylaxis 3. Rotted ultrasound ordered and reviewed with no hemodynamically significant ICA stenosis 4. Discussed importance of smoking cessation with patient. Recommend smoking cessation. Patient currently using Nicorette gum. 5. Recommend establishing and regular follow-up visits with primary care physician to monitor blood pressure 6. Continue with recommendations from cardiology Thank you for this consultation, vascular surgery will sign off at this time. Patient is welcome to follow-up with us in outpatient setting. The impression and plan of care has been dictated as directed. Dr. Enrique I performed a history and examination of this patient, discussed the same with the dictator. I agree with the dictator's note ,documented as a scribe. Any additional findings or plans will be noted.
--- NOTE | 2024-08-04 13:23 | CA ---
Dobutamine Stress Echocardiogram Report Micky Sherwood Age: 69 Gender: M : 1955 Exam Date: 08/04/2024 11:40 Exam Location: [facility] Ordering Physician: Stewart Obando MD ([email or web address]) Referring Physician: RAVINDRA [employer] Installer: MATEUS Technologist: Ht (in): 67 Wt (lb): 175 Procedure CPT: Indication: angina pectoris ICD-9 Codes: Rhythm: Patient History: Chest pain, shortness of breath and hypertension Cardiac Medications: SEE CHART,,, Medications in past 24 hours: Contrast: Definity Total Dose (mL): 2 Stress Results Protocol: Dobutamine Peak Dose (???g/kg/min): 30 Duration (min:sec): Atropine:(mg) Target HR: 128 Double Product: 62122 Resting HR: 72 Resting BP: 133 / 75 Peak HR: 141 Peak BP: 135 / 56 Max Predicted HR: 151 93 % Max Predicted HR Stress Summary: Patient received dobutamine infusion as per the protocol. Patient not recount any substernal chest pressure or shortness of breath with dobutamine infusion. Patient was able to achieve 93% of his bradycardia maximal heart rate BP Response: Reason for Termination: Target HR Cardiac Symptoms: NO SYMPTOMS ECG Analysis Resting EKG: Normal sinus rhythm with incomplete right bundle branch block with nonspecific T wave flattening in anteroseptal leads. Stress EKG: No significant ST-T wave changes that are diagnostic for ischemia by segment analysis Arrhythmia: There were no sustained arrhythmias or ectopic beats noticed during the stress test Echo Analysis Base Echo Analysis: Normal global and segmental systolic function at rest with no resting regional wall motion normality Low Echo Anaylsis: Normal augmentation of global and segmental systolic function with no stress-induced regional wall motion normality Peak Echo Analysis: Normal augmentation of global and segmental systolic function with no stress-induced regional wall motion normality Recovery Echo: No obvious regional wall motion abnormality noticed during recovery phase MEASUREMENTS (Male/Female) Normal Values CONCLUSIONS Overall low probability for severe obstructive CAD Nonischemic ECG and echocardiographic response to dobutamine infusion Normal hemodynamic and clinical response to dobutamine infusion Dr Stewart Obando (Electronically Signed) Final Date: 04 August 2024 13:23
--- NOTE | 2024-08-04 14:47 | P.PN ---
Subjective Progress Note Date: 08/04/24 This is a 69-year-old male with a past medical history significant for hypertension and nicotine dependence. 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 We have been asked to see the patient in consultation for chest pain. Patient examined at the bedside. Patient presented to the hospital with a chief complaint of chest discomfort. Patient states the pain started yesterday. He was not doing anything exertionally related when it started. He states the pain was in the middle of his chest and it was sharp type sensation. He reports associated shortness of breath. He states the pain lasted for a few hours. He denies any chest pain or pressure this morning. The patient is a current smoker and reports smoking 1 pack/day. The patient's blood pressures were noted to be significantly elevated upon admission with a reading of 183/94. DIAGNOSTICS: - EKG reveals sinus mechanism with no signs of acute ischemia. - Chest xray negative for acute process - Chest CTA: Negative for pulmonary embolism. Scattered areas of mural thrombus within the thoracic aorta and origin of the left subclavian artery. Possibly pose a significant risk for downstream embolism. Negative for acute cardiopulmonary disease. - Laboratory data: WBC 5.93. Hemoglobin 13.5. Platelet count 152. D-dimer 1.67. Sodium 136. Potassium 3.9. BUN 16. Creatinine 0.7. Troponin negative x 3. TSH 1.370. - Current home cardiac medications include lisinopril 40 mg daily and amlodipine 5 mg daily - No previous echocardiogram, stress test, or cardiac catheterization available in EMR for review 08/02/2024 Patient was seen and examined sitting up in bed. Continues to complain of chest discomfort, pain has been persistent and constant. Blood pressure is better but remains inadequately controlled. Was seen by vascular surgery with no plans for surgical intervention. 08/03/2024 Patient was seen and examined resting comfortably in bed. He is overall feeling better. Has no current complaints of chest discomfort. Breathing is stable. Echocardiogram with Doppler study showed normal LV systolic function with mild MR, mild AI and mild TR. 08/04/2024 Seen and examined at bedside this a.m. Denies any chest pain chest pressure shortness of breath. Stress test was nonrevealing PHYSICAL EXAM: VITAL SIGNS: Reviewed. GENERAL: Well-developed in no acute distress. HEENT: Head is normocephalic. Pupils are equal, round. Sclerae anicteric. Mucous membranes of the mouth are moist. Neck supple. No JVD or thyromegaly LUNGS: Respirations even and unlabored. Lungs essentially clear to auscultation bilaterally. HEART: Regular rate and rhythm. S1 and S2 heard. ABDOMEN: Soft. Nondistended. Nontender. EXTREMITIES: Normal range of motion. No clubbing or cyanosis. Peripheral pulses intact. No lower extremity edema NEUROLOGIC: Awake and alert. Oriented x 3. ASSESSMENT: Chest pain, troponin negative x 3 Hypertensive urgency Scattered mural thrombus in thoracic and descending aorta with filling defects within the origin of the left subclavian artery per chest CTA History of hypertension Nicotine dependence PLAN: Continue aspirin, Lipitor, amlodipine, lisinopril HCTZ 25 Tobacco cessation Okay to be discharged from cardiovascular standpoint with recommended outpatient follow-up Objective - Vital Signs Vital signs: Vital Signs Temp 97.8 F 08/04/24 07:00 Pulse 70 08/04/24 07:00 Resp 15 08/04/24 07:00 BP 110/68 08/04/24 07:00 Pulse Ox 96 08/04/24 07:00 FiO2 Intake & Output 08/03/24 08/04/24 08/04/24 18:59 06:59 18:59 Intake Total 462 222 Balance 462 222 Intake: Oral 462 222 Other: Voiding Method Toilet Toilet Toilet # Voids 3 3 # Bowel Movements 0 1 - Labs CBC & Chem 7: 08/01/24 05:04 08/04/24 05:40 Labs: Abnormal Lab Results - Last 24 Hours (Table) 08/04/24 Range/Units 05:40 Anion Gap 12.20 H (4.00-12.00) mmol/L BUN/Creatinine Ratio 27.44 H (12.00-20.00) Ratio
--- NOTE | 2024-08-04 16:13 | P.DS ---
Providers Date of admission: 07/31/24 14:30 Expected date of discharge: 08/04/24 Attending physician: Gloria Espinoza MD Consults: 07/31/24 14:44 Consult Physician Routine Consulting Provider: Shaw Mares Consult Reason/Comments: chest pain Do you want consulting provider notified?: Yes, Notify in am Consult Physician Routine Consulting Provider: Eliana Hurst Consult Reason/Comments: mural thrombus within thoracic aorta Do you want consulting provider notified?: Yes, Notify in am Primary care physician: [facility] Course: 69 year old M with PMH of HTN, tobacco abuse presented to the ED for chest pain associated with SOB, diaphoresis and nausea. In the ED he underwent extensive evaluation. BP 183/94, HR 81, T 98.4F, RR 17, 99% on RA. CBC, Coag panel, CMP significant for RBC 4.27, Hct 38.6, APTT 19.3, Na 133, Cr 0.57, glu 120. Mag 1.6. A1c 5.4. Trop < 0.012 x 3. BNP 152. TSH 1.37. Lipase 164. Lipid panel T. Chol 185, LDL 103.7. CXR no acute process. EKG sinus rhythm with no ST-T wave changes. CTA chest scattered areas of mural thrombus within the thoracic aorta and origin of the L subclavian artery. Admitted for further workup and m anagement. Vascular surgery consulted, carotid duplex showing atheromatous plaque bilateral carotids without flow-limiting stenosis, recommending conservative management. Cardiology consulted, Echo showed EF 55-60% with mild MR/AR/TR, plans for stress Echo 08/04. 08/04 Patient was seen and examined. Reports chest pain. Stress echo is negative. Cardiology cleared for discharge. Discharge Plan: Prescription for nicotine patch, HCTZ, ASA, Lipitor, [place] PRN, Amlodipine sent to pharmacy. Follow up with Cardiology and Vascular Sx within 1 week of discharge, PCP within 1-2 days of discharge. General: toxic, no distress, appears older than stated age Derm: warm, dry Head: atraumatic, normocephalic, symmetric Mouth: no lip lesion, mucus membranes moist Cardiovascular: S1S2 reg, no murmur Lungs: Clear to auscultation bilaterally, no rales , no accessory muscle use Ext: no gross muscle atrophy, no edema, no contractures Neuro: No focal neurologic deficits. Psych: Alert and oriented. 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 Patient Condition at Discharge: Stable Plan - Discharge Summary Discharge Rx Participant: Yes New Discharge Prescriptions: New Nicotine 21Mg/24Hr Patch [Habitrol] 1 patch TRANSDERM DAILY #30 patch hydroCHLOROthiazide [Hydrodiuril] 25 mg PO DAILY #30 tab Aspirin 81 mg PO DAILY #30 tab Atorvastatin [Lipitor] 40 mg PO HS #30 tab HYDROcodone/APAP 5-325MG [[place] 5-325] 1 tab PO Q6HR PRN 3 Days #12 tab PRN Reason: Severe Breakthrough Pain amLODIPine [Norvasc] 10 mg PO DAILY #30 tab Continue lisinopriL 40 mg PO DAILY Discontinued amLODIPine [Norvasc] 5 mg PO DAILY Discharge Medication List lisinopriL 40 mg PO DAILY 07/31/24 [History] Aspirin 81 mg PO DAILY #30 tab 08/04/24 [Rx] Atorvastatin [Lipitor] 40 mg PO HS #30 tab 08/04/24 [Rx] HYDROcodone/APAP 5-325MG [[place] 5-325] 1 tab PO Q6HR PRN 3 Days #12 tab 08/04/24 [Rx] Nicotine 21Mg/24Hr Patch [Habitrol] 1 patch TRANSDERM DAILY #30 patch 08/04/24 [Rx] amLODIPine [Norvasc] 10 mg PO DAILY #30 tab 08/04/24 [Rx] hydroCHLOROthiazide [Hydrodiuril] 25 mg PO DAILY #30 tab 08/04/24 [Rx] Follow up Appointment(s)/Referral(s): Stewart Obando MD [Medical Doctor] - 1 Week Bobby Palacio DO [Doctor of Osteopathic Medicine] - 1 Week Og Ortiz DO [Primary Care Provider] - 1-2 days Patient Instructions/Handouts: Angina (DC) Discharge/Stand Alone Forms: [facility], [facility], Who Do I Call?, Community Resources Discharge Disposition: HOME SELF-CARE
== END 2024-08-04 14:17 | disposition home or self-care (01) | DRG 303 ==
LOC: EC 10:20 → 6NMEDSUR 14:30 → OBSVTOIN 14:30 → 6NMEDSUR 17:24
PROVIDERS: ADMIT Student in an Organized Health Care Education/Training Program; ATTEND Student in an Organized Health Care Education/Training Program
PROC: 4A02XM4 Measurement of Cardiac Total Activity, External Approach (ICD-10-PCS; principal; 2024-08-04)
PROC: 3E073KZ Introduction of Other Diagnostic Substance into Coronary Artery, Percutaneous Approach (ICD-10-PCS; 2024-08-04)
DX: I51.3 Intracardiac thrombosis, not elsewhere classified (principal); I16.0 Hypertensive urgency; N17.9 Acute kidney failure, unspecified; I10 Essential (primary) hypertension; E78.5 Hyperlipidemia, unspecified; F17.210 Nicotine dependence, cigarettes, uncomplicated; F41.9 Anxiety disorder, unspecified; I25.10 Atherosclerotic heart disease of native coronary artery without angina pectoris; K21.9 Gastro-esophageal reflux disease without esophagitis; Z79.82 Long term (current) use of aspirin; Z79.899 Other long term (current) drug therapy
CPT/HCPCS: 36415; 71046; 71275; 80048; 80053; 80061; 83036; 83690; 83735; 83880; 84443; 84484; 85025; 85379; 85610; 85730; 93005; 93306; 93351; 93880; 96374; 96376; 99285

== ENCOUNTER 2024-08-04 18:01 | Observation (INO) | payer OTHER, MEDICARE ==
--- NOTE | 2024-08-04 18:34 | ED ---
General Adult HPI - General Chief complaint: Chest Pain Stated complaint: Chest Pain Time Seen by Provider: 08/04/24 18:19 Source: patient Mode of arrival: ambulatory Limitations: no limitations - History of Present Illness Initial comments: Dictation was produced using [employer] dictation software. please excuse any grammatical, word or spelling errors. Chief Complaint: 69-year-old male presents to the emergency department for chest pain History of Present Illness: Patient is a 69-year-old male presents with substernal sharp chest pain. States pain is nonradiating not associate diaphoresis or nausea. Not worse with deep inspiration. No history of DVT or PE. He does smoke cigarettes and states that he does have some slight family history of acute coronary syndrome. States that the pain is mild currently. Not exacerbated with exertion. The ROS documented in this emergency department record has been reviewed and confirmed by me. Those systems with pertinent positive or negative responses have been documented in the HPI. All other systems are other negative and/or noncontributory. - Related Data Home Medications Medication Instructions Recorded Confirmed lisinopriL 40 mg PO DAILY 07/31/24 08/04/24 Previous Rx's Medication Instructions Recorded Aspirin 81 mg PO DAILY #30 tab 08/04/24 Atorvastatin [Lipitor] 40 mg PO HS #30 tab 08/04/24 HYDROcodone/APAP 5-325MG [[place] 1 tab PO Q6HR PRN 3 Days #12 tab 08/04/24 5-325] Nicotine 21Mg/24Hr Patch [Habitrol] 1 patch TRANSDERM DAILY #30 patch 08/04/24 amLODIPine [Norvasc] 10 mg PO DAILY #30 tab 08/04/24 hydroCHLOROthiazide [Hydrodiuril] 25 mg PO DAILY #30 tab 08/04/24 Allergies Allergy/AdvReac Type Severity Reaction Status Date / Time No Known Allergies Allergy Verified 08/04/24 19:41 Review of Systems ROS Statement: Those systems with pertinent positive or pertinent negative responses have been documented in the HPI. ROS Other: All systems not noted in ROS Statement are negative. Past Medical History Past Medical History: Hyperlipidemia, Hypertension Additional Past Medical History / Comment(s): Degenerative disc disease, smoker hepatitis C History of Any Multi-Drug Resistant Organisms: None Reported Past Surgical History: No Surgical Hx Reported Past Psychological History: Anxiety Smoking Status: Current every day smoker Past Alcohol Use History: None Reported Past Drug Use History: None Reported - Past Family History Father History Unknown: Yes Mother History Unknown: Yes General Exam - General Exam Comments Initial Comments: PHYSICAL EXAM: General Impression: Alert and oriented x3, not in acute distress HEENT: Normocephalic atraumatic, extra-ocular movements intact, pupils equal and reactive to light bilaterally, mucous membranes moist. Cardiovascular: Heart regular rate and rhythm Chest: Able to complete full sentences, no retractions, no tachypnea Abdomen: abdomen soft, non-tender, non-distended, no organomegaly Musculoskeletal: Pulses present and equal in all extremities, no peripheral edema Motor: no focal deficits noted Neurological: CN II-XII grossly intact, no focal motor or sensory deficits noted Skin: Intact with no visualized rashes Psych: Normal affect and mood Limitations: no limitations Course Vital Signs 08/04/24 08/04/24 08/04/24 18:10 18:28 19:30 Temperature 97.5 F L 97.8 F Pulse Rate 98 86 79 Respiratory 20 18 18 Rate Blood Pressure 98/66 138/80 142/75 O2 Sat by Pulse 97 97 96 Oximetry 08/04/24 21:07 Temperature Pulse Rate 71 Respiratory 18 Rate Blood Pressure 121/67 O2 Sat by Pulse 95 Oximetry EKG Findings - EKG Comments: EKG Findings:: My EKG interpretation: Ventricular rate 92, sinus rhythm, NJ interval 151, QRS 108, QTc 431. No NJ prolongation, no QTC prolongation, no ST or T-wave changes noted. Overall, this EKG is unremarkable Medical Decision Making - Medical Decision Making Was pt. sent in by a medical professional or institution (, PA, OVERLOCK OPERATOR, urgent care, hospital, or long term...) When possible be specific @ -No Did you speak to anyone other than the patient for history (EMS, parent, family, police, friend...)? What history was obtained from this source @ -No Did you review nursing and triage notes (agree or disagree)? Why? @ -I reviewed and agree with nursing and triage notes Were old charts reviewed (outside hosp., previous admission, EMS record, old EKG, old radiological studies, urgent care reports/EKG's, long term records)? Report findings @ -No old charts were reviewed Differential Diagnosis (chest pain, altered mental status, abdominal pain women, abdominal pain men, vaginal bleeding, musculoskeletal, weakness, fever, dyspnea, syncope, headache, dizziness, GI bleed, back pain, seizure, CVA, palpatations, mental health)? @ -Differential chest pain EKG interpreted by me (3pts min.). @ -See above X-rays interpreted by me (1pt min.). @ -X-ray of the chest nonacute CT interpreted by me (1pt min.). @ -None done U/S interpreted by me (1pt. min.). @ -None done What testing was considered but not performed or refused? (CT, X-rays, U/S, labs)? Why? @ -None What meds were considered but not given or refused? Why? @ -None Was smoking cessation discussed for >3mins.? @ -No Were there social determinants of health that impacted care today? How? (Homelessness, low income, unemployed, alcoholism, drug addiction, transportation, low edu. Level, literacy, decrease access to med. care, snf, rehab)? @ -No Was there de-escalation of care discussed even if they declined (Discuss DNR or withdrawal of care, Hospice)? DNR status @ -No What co-morbidities impacted this encounter? (DM, HTN, Smoking, COPD, CAD, Cancer, CVA, ARF, Chemo, Hep., AIDS, mental health diagnosis, sleep apnea, morbid obesity)? @ -None Was patient admitted / discharged? Hospital course, mention meds given and route, prescriptions, significant lab abnormalities, going to OR and other pertinent info. @ -69-year-old male with atypical chest pain typical features. Vital signs are stable. He does have some risk factors. Laboratory evaluation within acceptable limits. X-ray is unremarkable. Troponin is negative. Patient will be admitted to observation for serial troponins, cardiac monitoring and cardiology consultation. Case discussed with hospitalist for admission Did you discuss the management of the patient with other professionals (professionals i.e. , PA, OVERLOCK OPERATOR, lab, RT, psych nurse, certified social workers in health care, science professor, teacher, chief revenue officer, casework supervisor)? Give summary @ -See above Was critical care preformed (if so, how long)? @ -No Undiagnosed new problem with uncertain prognosis? @ -No Drug Therapy requiring intensive monitoring for toxicity (Heparin, Nitro, Insulin, Cardizem)? @ -No Were any procedures done? @ -No Diagnosis/symptom? Acute, or Chronic, or Acute on Chronic? Uncomplicated (without systemic symptoms) or Complicated (systemic symptoms)? @ -Chest pain Side effects of treatment? @ -No Exacerbation, Progression, or Severe Exacerbation? @ -No Poses a threat to life or bodily function? How? (Chest pain, [place], [place], pneumonia, PE, COPD, DKA, ARF, appy, cholecystitis, CVA, Diverticulitis, Homicidal, Suicidal, threat to staff... and all critical care pts) @ -yes - Lab Data Result diagrams: 08/04/24 18:13 08/04/24 18:13 Lab Results 08/04/24 08/04/24 08/04/24 Range/Units 18:13 18:13 18:13 WBC 9.29 (4.50-10.00) 10*3/uL RBC 4.36 L (4.40-5.60) 10*6/uL Hgb 14.3 (13.0-17.0) g/dL Hct 40.4 (39.6-50.0) % MCV 92.7 (80.0-97.0) fL MCH 32.8 H (27.0-32.0) pg MCHC 35.4 (32.0-37.0) g/dL Plt Count 149 (140-440) 10*3/uL MPV 9.4 L (9.5-12.2) fL Immature Gran % (Auto) 0.3 % Neutrophils % 75.3 % Lymphocytes % 14.7 % Monocytes % 8.5 % Eosinophils % 0.8 % Basophils % 0.4 % Immature Gran # 0.03 (0.00-0.04) 10*3/uL Neutrophils # 6.99 (1.80-7.70) 10*3/uL Lymphocytes # 1.37 (0.90-5.00) 10*3/uL Monocytes # 0.79 (0.20-1.00) 10*3/uL Eosinophils # 0.07 (0.04-0.35) 10*3/uL Basophils # 0.04 (0.00-0.10) 10*3/uL PT 10.0 (10.0-12.5) sec INR 0.9 (<1.2) APTT 21.7 L (22.0-30.0) sec Sodium 132 L (137-145) mmol/L Potassium 4.3 (3.5-5.1) mmol/L Chloride 96 L (98-107) mmol/L Carbon Dioxide 24 (22-30) mmol/L Anion Gap 12 mmol/L BUN 32 H (9-20) mg/dL Creatinine 1.10 (0.66-1.25) mg/dL Est GFR (CKD-EPI)AfAm 79 (>60 ml/min/1.73 sqM) Est GFR (CKD-EPI)NonAf 68 (>60 ml/min/1.73 sqM) Glucose 101 H (74-99) mg/dL Calcium 9.4 (8.4-10.2) mg/dL Magnesium 2.0 (1.6-2.3) mg/dL Total Bilirubin 0.8 (0.2-1.3) mg/dL AST 31 (17-59) U/L ALT 19 (4-49) U/L Alkaline Phosphatase 74 (38-126) U/L Troponin I (0.000-0.034) ng/mL Total Protein 7.4 (6.3-8.2) g/dL Albumin 4.5 (3.5-5.0) g/dL 08/04/24 Range/Units 20:12 WBC (4.50-10.00) 10*3/uL RBC (4.40-5.60) 10*6/uL Hgb (13.0-17.0) g/dL Hct (39.6-50.0) % MCV (80.0-97.0) fL MCH (27.0-32.0) pg MCHC (32.0-37.0) g/dL Plt Count (140-440) 10*3/uL MPV (9.5-12.2) fL Immature Gran % (Auto) % Neutrophils % % Lymphocytes % % Monocytes % % Eosinophils % % Basophils % % Immature Gran # (0.00-0.04) 10*3/uL Neutrophils # (1.80-7.70) 10*3/uL Lymphocytes # (0.90-5.00) 10*3/uL Monocytes # (0.20-1.00) 10*3/uL Eosinophils # (0.04-0.35) 10*3/uL Basophils # (0.00-0.10) 10*3/uL PT (10.0-12.5) sec INR (<1.2) APTT (22.0-30.0) sec Sodium (137-145) mmol/L Potassium (3.5-5.1) mmol/L Chloride (98-107) mmol/L Carbon Dioxide (22-30) mmol/L Anion Gap mmol/L BUN (9-20) mg/dL Creatinine (0.66-1.25) mg/dL Est GFR (CKD-EPI)AfAm (>60 ml/min/1.73 sqM) Est GFR (CKD-EPI)NonAf (>60 ml/min/1.73 sqM) Glucose (74-99) mg/dL Calcium (8.4-10.2) mg/dL Magnesium (1.6-2.3) mg/dL Total Bilirubin (0.2-1.3) mg/dL AST (17-59) U/L ALT (4-49) U/L Alkaline Phosphatase (38-126) U/L Troponin I <0.012 (0.000-0.034) ng/mL Total Protein (6.3-8.2) g/dL Albumin (3.5-5.0) g/dL Disposition Clinical Impression: Chest pain Disposition: ADMITTED IP TO THIS HOSP Condition: Fair Referrals: Og Ortiz DO [Primary Care Provider] - 1-2 days Decision Time: 21:48
[2024-08-04 19:11] LABS: Basophils # (A) 0.04 10*3/uL (0.00-0.10); Basophils % (A) 0.4 %; Eosinophils # (A) 0.07 10*3/uL (0.04-0.35); Eosinophils % (A) 0.8 %; HCT 40.4 % (39.6-50.0); HGB 14.3 g/dL (13.0-17.0); Lymphocytes # (A) 1.37 10*3/uL (0.90-5.00); Lymphocytes % (A) 14.7 %; MCH 32.8 pg (27.0-32.0); MCHC 35.4 g/dL (32.0-37.0); MCV 92.7 fL (80.0-97.0); Mean Platelet Volume 9.4 fL (9.5-12.2); Monocytes # (A) 0.79 10*3/uL (0.20-1.00); Monocytes % (A) 8.5 %; Neutrophils # (A) 6.99 10*3/uL (1.80-7.70); Neutrophils % (A) 75.3 %; Platelet Count 149 10*3/uL (140-440); RBC 4.36 10*6/uL (4.40-5.60); RDW 12.9 % (11.5-14.5); WBC 9.29 10*3/uL (4.50-10.00)
[2024-08-04 19:31] LABS: INR 0.9 (<1.2); Partial Thromboplastin Time 21.7 sec (22.0-30.0)
[2024-08-04 19:45] LABS: ALT 19 U/L (4-49); AST 31 U/L (17-59); African American GFR (CKD) 79 (>60 ml/min/1.73 sqM); Albumin 4.5 g/dL (3.5-5.0); Alkaline Phosphatase 74 U/L (38-126); Anion Gap 12 mmol/L; Blood Urea Nitrogen 32 mg/dL (9-20); Calcium 9.4 mg/dL (8.4-10.2); Carbon Dioxide 24 mmol/L (22-30); Chloride 96 mmol/L (98-107); Glucose 101 mg/dL (74-99); Non-African American GFR(CKD) 68 (>60 ml/min/1.73 sqM); Potassium 4.3 mmol/L (3.5-5.1); Sodium 132 mmol/L (137-145); Total Bilirubin 0.8 mg/dL (0.2-1.3); Total Protein 7.4 g/dL (6.3-8.2)
[2024-08-04] MEDS: ASPIRIN 81 MG PO STA (20:00)
[2024-08-04] MEDS: MORPHINE SULFATE 4 MG/ML SYRINGE IV STA (20:01)
--- NOTE | 2024-08-04 20:09 | XR ---
EXAMINATION TYPE: XR chest 2V DATE OF EXAM: 08/04/2024 7:24 PM COMPARISON: Chest radiographs from 07/31/2024 CLINICAL INDICATION: Male, 69 years old with history of Chest Pain; [facility] TECHNIQUE: XR chest 2V Frontal and lateral views of the chest. FINDINGS: Lungs/Pleura: There is no evidence of pleural effusion, focal consolidation, or pneumothorax. Pulmonary vascularity: Unremarkable. Heart/mediastinum: Cardiomediastinal silhouette is unremarkable. Musculoskeletal: No acute osseous pathology. Other findings: None IMPRESSION: No acute cardiopulmonary disease/process. [facility], , 08/04/2024 8:06 PM
[2024-08-04] MEDS ORDERED: NITROGLYCERIN SL TABS 0.4 MG TAB SUBLINGUAL PRN (21:45)
[2024-08-05] MEDS ORDERED: HYDROcodone/APAP 5-325MG 1 EACH TAB PO PRN (00:18)
--- NOTE | 2024-08-05 00:18 | P.HPIM ---
History of Present Illness H&P Date: 08/04/24 Chief Complaint: Chest pain Patient is a 69 year old male with past medical history of hyperlipidemia, hypertension, current tobacco dependence presented to the ED with chest pain. Patient reports having pounding pressure like sensation in his chest while watching TV earlier today.The pain was 9 out 10 severity. He states the pain is nonradiating. Associated with that he experienced diaphoresis but denies nausea. He states the pain got better upon walking around. Denies increase in physical activity recently. He mentions having to walk everywhere as he lives alone and does not have a car. He denies heartburn. Patient mentions that he is a current everyday smoker and that he has a family history of CAD. He expresses interest in quitting smoking, states that he has tried to quit in the past but was unsuccessful. Patient was admitted on 07/31/2024 with similar complaints. Chest CTA showed scattered mural thrombus in thoracic and ascending aorta with filling defect within the origin of the left subclavian artery. Patient also had a carotid doppler study done on 08/01/24 that showed Atheromatous plaque in bilateral carotid bifurcation without significant flow-limiting stenosis based on velocities. He had a dobutamine stress echo done on 08/04/2024 so that showed no obvious regional wall motion abnormality during recovery phase, nonischemic ECG and echocardiographic response dobutamine infusion, normal hemodynamic and clinical response dobutamine infusion. He was discharged on hydrochlorothiazide 25 mg p.o. daily, aspirin 81 mg p.o. daily, atorvastatin 40 mg p.o. at bedtime, amlodipine 10 mg p.o. daily, [place] and nicotine patch. Denies fever, chills, cough, palpitations, abdominal pain, nausea, vomiting, hematuria, dysuria, hematochezia, melena, headache, slurred speech, numbness, tingling, dizziness, lightheadedness, blurred vision, double vision. ED documentation reviewed. In the ED patient was treated with aspirin 324 mg mg, morphine 4 mg. Vitals on admission T 97.5 F, GA 98 bpm, RR 20, BP 98/66, oxygen saturation 97% on room air. Current BP 121/67, respiratory rate 18 EKG independently interpreted as sinus rhythm, incomplete RBBB, poor R wave progression, delta waves in lead II, III, V3, T wave inversion in lead I, V1, V2, rate 92 bpm, QTc 431 ms Chest x-ray shows no acute cardiopulmonary disease/process Labs on admission show WBC 9.29, hemoglobin 14.3, platelet count 149, INR 0.9, sodium 132, potassium 4.3, chloride 96, bicarb 24, BUN 32, creatinine 1.1, magnesium 2.0, total bilirubin 0.8 Troponin I <0.012 Patient admitted to internal medicine service Review of systems: Pertinent positives and negatives as discussed in HPI, a complete review of systems was performed and all other systems are negative. Physical examination: Vital signs reviewed General: nontoxic, no distress, appears at stated age Derm: warm, dry, intact Head: atraumatic, normocephalic, symmetric Eyes: EOMI, anicteric sclera Mouth: no lip lesion, mucus membranes moist Cardiovascular: S1 S2 reg, no murmur Lungs: CTA bilateral, no rhonchi, no rales, no accessory muscle use Abdominal: soft, non-tender to palpation Extremities: No cyanosis, clubbing, or pedal edema. Neuro: Alert, Oriented, Gross neurological examination did not reveal any focal deficits. Psych: well appearing, appropriate affect Assessment/Plan: Patient is a 69 year old male with past medical history of hyperlipidemia, hypertension, current tobacco dependence presented to the ED with chest pain. Active: #. Chest pain, ACS r/o EKG independently interpreted as sinus rhythm, incomplete RBBB, poor R wave progression, delta waves in lead II, III, V3, T wave inversion in lead I, V1, V2, rate 92 bpm, QTc 431 ms Chest x-ray shows no acute cardiopulmonary disease/process Troponin I <0.012 x1 Received aspirin 324 mg, morphine 4 mg in the ED Continue home meds aspirin 81 mg p.o. daily, Lipitor 40 mg p.o. daily Continue nitroglycerin 0.4 mg sublingual Q5M as needed for pain management Continue supplemental oxygen, currently on room air Continue to trend troponin Obtain lipid panel, TSH Continue telemetry monitoring Consult cardiology #. Mild hyponatremia Sodium 132, low on admission Monitor BMP Chronic: #. Hypertension #. Hyperlipidemia #. Tobacco dependence Continue Adipine 10 mg p.o. daily, hydrochlorothiazide 25 mg p.o. daily, lisinopril 40 mg p.o. daily, nicotine patch F: None E: Replete as required N: Heart healthy diet A: Ambulatory DVT prophylaxis: Lovenox 40 mg SQ daily and SCD GI prophylaxis: Pantoprazole 40 mg p.o. daily The patient is admitted with an anticipated less than 2 midnight stay for evaluation of chest pain CODE STATUS: Full code Discussed with: Patient Anticipated discharge place: Pending clinical course Dictation was produced using [employer] dictation software. please excuse any grammatical, word or spelling errors. Patricia Mckeon MD PGY-1 IM I have seen and evaluated the patient today. I Discussed the case with the resident and agree with the resident's findings I edited the assessment and plan as necessary as documented in the resident's note. Past Medical History Past Medical History: Hyperlipidemia, Hypertension Additional Past Medical History / Comment(s): Degenerative disc disease, smoker hepatitis C History of Any Multi-Drug Resistant Organisms: None Reported Past Surgical History: No Surgical Hx Reported Past Psychological History: Anxiety Smoking Status: Current every day smoker Past Alcohol Use History: None Reported Past Drug Use History: None Reported - Past Family History Father History Unknown: Yes Mother History Unknown: Yes Medications and Allergies Home Medications Medication Instructions Recorded Confirmed Type lisinopriL 40 mg PO DAILY 07/31/24 08/04/24 History Aspirin 81 mg PO DAILY #30 tab 08/04/24 08/04/24 Rx Atorvastatin [Lipitor] 40 mg PO HS #30 tab 08/04/24 08/04/24 Rx HYDROcodone/APAP 5-325MG [[place] 1 tab PO Q6HR PRN 3 Days #12 tab 08/04/24 08/04/24 Rx 5-325] Nicotine 21Mg/24Hr Patch [Habitrol] 1 patch TRANSDERM DAILY #30 patch 08/04/24 08/04/24 Rx amLODIPine [Norvasc] 10 mg PO DAILY #30 tab 08/04/24 08/04/24 Rx hydroCHLOROthiazide [Hydrodiuril] 25 mg PO DAILY #30 tab 08/04/24 08/04/24 Rx Allergies Allergy/AdvReac Type Severity Reaction Status Date / Time No Known Allergies Allergy Verified 08/04/24 19:41 Physical Exam Vitals: Vital Signs Temp Pulse Resp BP Pulse Ox 08/04/24 21:07 71 18 121/67 95 08/04/24 19:30 79 18 142/75 96 08/04/24 18:28 97.8 F 86 18 138/80 97 08/04/24 18:10 97.5 F L 98 20 98/66 97 Intake and Output 08/04/24 08/04/24 08/04/24 06:59 14:59 22:59 Other: Weight 77.111 kg Results CBC & Chem 7: 08/04/24 18:13 08/04/24 18:13 Labs: Abnormal Lab Results - Last 24 Hours (Table) 08/04/24 08/04/24 08/04/24 Range/Units 18:13 18:13 18:13 RBC 4.36 L (4.40-5.60) 10*6/uL MCH 32.8 H (27.0-32.0) pg MPV 9.4 L (9.5-12.2) fL APTT 21.7 L (22.0-30.0) sec Sodium 132 L (137-145) mmol/L Chloride 96 L (98-107) mmol/L BUN 32 H (9-20) mg/dL Glucose 101 H (74-99) mg/dL
[2024-08-05] MEDS: MORPHINE SULFATE 2 MG/ML SYRINGE IVP PRN (00:25)
[2024-08-05 04:30] LABS: African American GFR (CKD) >90 (>60 ml/min/1.73 sqM); Anion Gap 7 mmol/L; Blood Urea Nitrogen 32 mg/dL (9-20); Carbon Dioxide 24 mmol/L (22-30); Chloride 99 mmol/L (98-107); Glucose 104 mg/dL (74-99); Non-African American GFR(CKD) >90 (>60 ml/min/1.73 sqM); Potassium 3.9 mmol/L (3.5-5.1); Sodium 130 mmol/L (137-145)
[2024-08-05 04:33] LABS: HCT 38.9 % (39.6-50.0); HGB 13.6 g/dL (13.0-17.0); MCH 32.9 pg (27.0-32.0); Mean Platelet Volume 9.7 fL (9.5-12.2); Platelet Count 137 10*3/uL (140-440); RBC 4.14 10*6/uL (4.40-5.60); RDW 12.9 % (11.5-14.5); WBC 6.97 10*3/uL (4.50-10.00)
[2024-08-05] MEDS: PANTOPRAZOLE 40 MG TABLET PO SCH (06:05)
[2024-08-05 07:27] VITALS: BP 116/74; PULSE 63; RESP 16; TEMP 98.3
[2024-08-05 08:39] LABS: Chol/HDL Ratio 4.72 Ratio
[2024-08-05 08:58] LABS: LDL Cholesterol,Calculated 116.1 mg/dL (0.0-131.0)
[2024-08-05] MEDS ORDERED: ASPIRIN 325 MG TAB PO SCH (09:00)
[2024-08-05] MEDS ORDERED: ACETAMINOPHEN TAB 325 MG TAB PO PRN (09:07)
[2024-08-05] MEDS: hydroCHLOROthiazide 25 MG TAB PO SCH (09:37)
[2024-08-05] MEDS: ASPIRIN 81 MG PO SCH (09:37)
[2024-08-05] MEDS: lisinopriL 20 MG TAB PO SCH (09:37)
[2024-08-05] MEDS: amLODIPine 10 MG TAB PO SCH (09:37)
[2024-08-05] MEDS: KETOROLAC 15 MG/ML 1 ML VIAL IVP STA (09:37)
[2024-08-05] MEDS: LIDOCAINE 4% PATCH TOPICAL ONE (09:37)
[2024-08-05] MEDS: ENOXAPARIN 40 MG/0.4 ML SYRINGE SQ SCH (09:40)
[2024-08-05] MEDS: NICOTINE 21MG/24HR PATCH TRANSDERM SCH (09:41)
--- NOTE | 2024-08-05 14:02 | P.CRDCN ---
History of Present Illness Consult date: 08/05/24 History of present illness: This is a 69-year-old male with past medical history of hypertension, tobacco use and dependence. Patient had a hospitalization 08/01 - 08/04 and was seen at that time by cardiology for chest pain and hypertensive urgency. Patient underwent dobutamine stress echo which showed normal hemodynamic and clinical response to dobutamine infusion. Nonischemic EKG and echocardiogram response. Patient was cleared for discharge from cardiology. He states that he went home and he was sitting and watching TV and he developed pain or pressure type sensation in his chest. Nothing seemed to make it better or worse. He denies abdominal pain. He denies diarrhea or constipation. He is a smoker 1 pack/day he denies marijuana use. He states he drinks a couple beers here and there. He now states that he is feeling a little weak. Patient was not started on a beta- analia due to bradycardia. -EKG: Sinus rhythm, incomplete right bundle branch block no acute ST-T wave changes. -Chest x-ray: No acute process. -Laboratory studies: -Home cardiac medications: Amlodipine 10 mg daily, aspirin 81 mg daily, atorvastatin 40 mg at bedtime, hydrochlorothiazide 25 mg daily, lisinopril 40 mg daily, Nitrostat as needed, patient is also on nicotine patch. -Echocardiogram performed on 08/02/2024 revealed normal left ventricular size and systolic function. Mild mitral, aortic and tricuspid regurgitation. No pericardial effusion. Review Of Systems: At the time of my exam: CONSTITUTIONAL: Denies fever or chills. HEENT: Denies blurred vision, vision changes, or eye pain. Denies hemoptysis CARDIOVASCULAR: Denies chest pain. Denies orthopnea. Denies PND. Denies palpitations RESPIRATORY: Denies shortness of breath. GASTROINTESTINAL: Denies abdominal pain. Denies nausea or vomiting. HEMATOLOGIC: Denies bleeding disorders. GENITOURINARY: Denies any blood in urine. SKIN: Denies puritis. Denies rash. Physical examination: Gen: This is 69-year-old male in no acute distress VS: reviewed HEENT: Head is atraumatic, normocephalic. Pupils equal, round. Sclerae is anicteric. NECK: Supple. No JVD. LUNGS: Clear to auscultation. No wheezes or rhonchi. No intercostal retractions. HEART: Regular rate and rhythm. No murmur. ABDOMEN: Soft No tenderness. EXTREMITIES: No pedal edema. No calf tenderness. NEUROLOGICAL: Patient is awake, alert and oriented x3. 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 Nurse practitioner note has been reviewed, I agree with documented findings and plan of care. Patient was seen and examined. Past Medical History Past Medical History: Hyperlipidemia, Hypertension Additional Past Medical History / Comment(s): Degenerative disc disease, smoker hepatitis C History of Any Multi-Drug Resistant Organisms: None Reported Past Surgical History: No Surgical Hx Reported Past Anesthesia/Blood Transfusion Reactions: No Reported Reaction Past Psychological History: Anxiety Smoking Status: Current every day smoker Past Alcohol Use History: None Reported Past Drug Use History: None Reported - Past Family History Father History Unknown: Yes Mother History Unknown: Yes Medications and Allergies Home Medications Medication Instructions Recorded Confirmed Type lisinopriL 40 mg PO DAILY 07/31/24 08/04/24 History Aspirin 81 mg PO DAILY #30 tab 08/04/24 08/04/24 Rx Atorvastatin [Lipitor] 40 mg PO HS #30 tab 08/04/24 08/04/24 Rx HYDROcodone/APAP 5-325MG [[place] 1 tab PO Q6HR PRN 3 Days #12 tab 08/04/24 08/04/24 Rx 5-325] Nicotine 21Mg/24Hr Patch [Habitrol] 1 patch TRANSDERM DAILY #30 patch 08/04/24 08/04/24 Rx amLODIPine [Norvasc] 10 mg PO DAILY #30 tab 08/04/24 08/04/24 Rx hydroCHLOROthiazide [Hydrodiuril] 25 mg PO DAILY #30 tab 08/04/24 08/04/24 Rx Nitroglycerin Sl Tabs [Nitrostat] 0.4 mg SUBLINGUAL Q5M PRN #25 tab 08/05/24 Rx Allergies Allergy/AdvReac Type Severity Reaction Status Date / Time No Known Allergies Allergy Verified 08/04/24 19:41 Physical Exam Vitals: Vital Signs Temp Pulse Pulse Resp BP BP Pulse Ox 08/05/24 07:00 98.3 F 63 16 116/74 96 08/05/24 01:51 98 F 68 16 126/77 95 08/04/24 22:40 97.7 F 71 16 164/90 97 08/04/24 22:15 66 18 128/85 95 08/04/24 21:07 71 18 121/67 95 08/04/24 19:30 79 18 142/75 96 08/04/24 18:28 97.8 F 86 18 138/80 97 08/04/24 18:10 97.5 F L 98 20 98/66 97 Intake and Output 08/04/24 08/05/24 08/05/24 22:59 06:59 14:59 Other: Voiding Method Toilet # Voids 3 Weight 77.111 kg Results 08/05/24 01:32 08/05/24 01:36 Cardiac Enzymes 08/04/24 08/04/24 08/04/24 Range/Units 18:13 20:12 22:39 AST 31 (17-59) U/L Troponin I <0.012 <0.012 (0.000-0.034) ng/mL 08/05/24 Range/Units 01:36 AST (17-59) U/L Troponin I <0.012 (0.000-0.034) ng/mL Coagulation 08/04/24 Range/Units 18:13 PT 10.0 (10.0-12.5) sec APTT 21.7 L (22.0-30.0) sec Lipids 08/04/24 Range/Units 18:03 Cholesterol 195.00 (0.00-200.00) mg/dL HDL Cholesterol 41.30 (40.00-60.00) mg/dL Cholesterol/HDL Ratio 4.72 Ratio CBC 08/04/24 08/05/24 Range/Units 18:13 01:32 WBC 9.29 6.97 (4.50-10.00) 10*3/uL RBC 4.36 L 4.14 L (4.40-5.60) 10*6/uL Hgb 14.3 13.6 (13.0-17.0) g/dL Hct 40.4 38.9 L (39.6-50.0) % Plt Count 149 137 L (140-440) 10*3/uL Comprehensive Metabolic Panel 08/04/24 08/05/24 Range/Units 18:13 01:36 Sodium 132 L 130 L (137-145) mmol/L Potassium 4.3 3.9 (3.5-5.1) mmol/L Chloride 96 L 99 (98-107) mmol/L Carbon Dioxide 24 24 (22-30) mmol/L BUN 32 H 32 H (9-20) mg/dL Creatinine 1.10 0.82 (0.66-1.25) mg/dL Glucose 101 H 104 H (74-99) mg/dL Calcium 9.4 9.0 (8.4-10.2) mg/dL AST 31 (17-59) U/L ALT 19 (4-49) U/L Alkaline Phosphatase 74 (38-126) U/L Total Protein 7.4 (6.3-8.2) g/dL Albumin 4.5 (3.5-5.0) g/dL Current Medications Generic Name Dose Route Start Last Admin Trade Name Freq PRN Reason Stop Dose Admin Hydrocodone Bitart/Acetaminophen 1 each 08/05/24 00:18 Hydrocodone/Apap 5-325mg 1 Each Tab PO Q6HR PRN Severe Breakthrough Pain Amlodipine Besylate 10 mg 08/05/24 09:00 Amlodipine 10 Mg Tab PO DAILY [facility] Aspirin 81 mg 08/05/24 09:00 Aspirin 81 Mg PO DAILY [facility] Atorvastatin Calcium 40 mg 08/05/24 21:00 Atorvastatin 40 Mg Tab PO HS [facility] Enoxaparin Sodium 40 mg 08/05/24 09:00 Enoxaparin 40 Mg/0.4 Ml Syringe SQ DAILY [facility] Hydrochlorothiazide 25 mg 08/05/24 09:00 Hydrochlorothiazide 25 Mg Tab PO DAILY [facility] Lisinopril 40 mg 08/05/24 09:00 Lisinopril 20 Mg Tab PO DAILY [facility] Morphine Sulfate 2 mg 08/05/24 00:18 08/05/24 04:28 Morphine Sulfate 2 Mg/Ml Syringe IVP 2 mg Q4HR PRN Administration Pain/Discomfort Nicotine 1 patch 08/05/24 09:00 Nicotine 21mg/24hr Patch TRANSDERM DAILY [facility] Nitroglycerin 0.4 mg 08/04/24 21:45 Nitroglycerin Sl Tabs 0.4 Mg Tab SUBLINGUAL Q5M PRN Chest Pain Pantoprazole Sodium 40 mg 08/05/24 07:30 08/05/24 06:05 Pantoprazole 40 Mg Tablet PO 40 mg [id number] [facility] Administration Intake and Output 08/04/24 08/05/24 08/05/24 22:59 06:59 14:59 Other: Voiding Method Toilet # Voids 3 Weight 77.111 kg 08/05/24 01:32 08/05/24 01:36
--- NOTE | 2024-08-05 16:06 | P.DS ---
Providers Date of admission: 08/04/24 21:46 Expected date of discharge: 08/05/24 Attending physician: Jasper Flor MD Consults: 08/04/24 21:45 Consult Physician Urgent Consulting Provider: Sammy Bean Consult Reason/Comments: chest pain Do you want consulting provider notified?: Yes Primary care physician: [facility] Course: 69 year old M with PMH of HTN, tobacco abuse presented to the ED for chest pain. He was discharged yesterday after a negative stress test. In the ED he underwent extensive evaluation. BP 98/66, HR 98, T 97.5F, RR 20, 97% on RA. CBC, Coag panel, CMP significant for RBC 4.36, APTT 21.7, Na 132, Cl 96, BUN 32, glu 107. Mag 2. Trop < 0.012 x 3. TSH 3.7. Lipid panel T. Chol 195, LDL 116.1. CXR no acute process. EKG sinus rhythm with no ST-T wave changes. Cardiology was consulted and cleared the patient for discharge on Nitro SL PRN. 08/05 Patient was seen and examined. Reports chest pain. States that he is homeless and needs to speak to social media director. CBC and BMP significant for RBC 4.14, Hct 38/9, Plt 137, Na 130, BUN 32, glu 104. Discharge Plan: Prescription for Nitro SL PRN sent to pharmacy. Follow up with Cardiology and Vascular Sx within 1 week of discharge, PCP within 1-2 days of discharge. General: toxic, no distress, appears older than stated age Derm: warm, dry Head: atraumatic, normocephalic, symmetric Mouth: no lip lesion, mucus membranes moist Cardiovascular: S1S2 reg, no murmur Lungs: Clear to auscultation bilaterally, no rales , no accessory muscle use Ext: no gross muscle atrophy, no edema, no contractures Neuro: No focal neurologic deficits. Psych: Alert and oriented. 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 Patient Condition at Discharge: Stable Plan - Discharge Summary New Discharge Prescriptions: New Nitroglycerin Sl Tabs [Nitrostat] 0.4 mg SUBLINGUAL Q5M PRN #25 tab PRN Reason: Chest Pain Continue Nicotine 21Mg/24Hr Patch [Habitrol] 1 patch TRANSDERM DAILY #30 patch hydroCHLOROthiazide [Hydrodiuril] 25 mg PO DAILY #30 tab lisinopriL 40 mg PO DAILY Aspirin 81 mg PO DAILY #30 tab Atorvastatin [Lipitor] 40 mg PO HS #30 tab HYDROcodone/APAP 5-325MG [[place] 5-325] 1 tab PO Q6HR PRN 3 Days #12 tab PRN Reason: Severe Breakthrough Pain amLODIPine [Norvasc] 10 mg PO DAILY #30 tab Discharge Medication List lisinopriL 40 mg PO DAILY 07/31/24 [History] Aspirin 81 mg PO DAILY #30 tab 08/04/24 [Rx] Atorvastatin [Lipitor] 40 mg PO HS #30 tab 08/04/24 [Rx] HYDROcodone/APAP 5-325MG [[place] 5-325] 1 tab PO Q6HR PRN 3 Days #12 tab 08/04/24 [Rx] Nicotine 21Mg/24Hr Patch [Habitrol] 1 patch TRANSDERM DAILY #30 patch 08/04/24 [Rx] amLODIPine [Norvasc] 10 mg PO DAILY #30 tab 08/04/24 [Rx] hydroCHLOROthiazide [Hydrodiuril] 25 mg PO DAILY #30 tab 08/04/24 [Rx] Nitroglycerin Sl Tabs [Nitrostat] 0.4 mg SUBLINGUAL Q5M PRN #25 tab 08/05/24 [Rx] Follow up Appointment(s)/Referral(s): Stewart Obando MD [Medical Doctor] - 1 Week Og Ortiz DO [Primary Care Provider] - 1-2 days Patient Instructions/Handouts: Chest Pain (DC) Discharge/Stand Alone Forms: [facility], [facility] Discharge Disposition: HOME SELF-CARE
[2024-08-05] MEDS ORDERED: ATORVASTATIN 40 MG TAB PO SCH (21:00)
== END 2024-08-05 18:21 | disposition home or self-care (01) ==
LOC: EC 18:01 → 6NMEDSUR 21:46
PROVIDERS: ADMIT Internal Medicine; ATTEND Internal Medicine
DX: R07.89 Other chest pain (principal); I08.3 Combined rheumatic disorders of mitral, aortic and tricuspid valves; I74.11 Embolism and thrombosis of thoracic aorta; I45.10 Unspecified right bundle-branch block; E87.1 Hypo-osmolality and hyponatremia; I10 Essential (primary) hypertension; R61 Generalized hyperhidrosis; E78.5 Hyperlipidemia, unspecified; F17.210 Nicotine dependence, cigarettes, uncomplicated; Z79.82 Long term (current) use of aspirin; Z79.899 Other long term (current) drug therapy; Z59.00 Homelessness unspecified; Z82.49 Family history of ischemic heart disease and other diseases of the circulatory system
CPT/HCPCS: 96376; 96375; 96374; 99285; 36415; 93005; 80061; 80053; 80048; 84443; 83735; 84484 ×2; 85025; 85027; 85610; 85730; 71046; G0378 ×2; J2270 ×2; J1885